=== PATIENT | female | born 1985 | race Caucasian/White ===

== ENCOUNTER 2023-02-27 17:42 | Emergency (ER) | payer SELFPAY ==
--- OUTSIDE RECORDS SUMMARY | 2023-02-27 17:53 | XMS REPORT | Continuity of Care Document ---
:[address] [facility] t Address [address] [place] [address] Care Team Providers Name Role Phone Pcp, Patient Does Not Have A Primary Care Physician [phone] ESPERANZA TRACY Attending Clinician Unavailable Esperanza Hobsb Attending Clinician [phone] JAVON JIMENEZ Attending Clinician Unavailable JAVON JIMENEZ Attending Clinician Unavailable Doctor Unassigned, [place] Attending Clinician Unavailable HÉCTOR YOON Attending Clinician Unavailable HÉCTOR YOON Attending Clinician Unavailable Pcp, Patient Does Not Have A Attending Clinician [phone] PETER Attending Clinician Unavailable Julio César Gómez MD Attending Clinician PETER Admitting Clinician Unavailable Payers Payer Name Policy Type Policy Number Effective Date Expiration Date S ource Problems Condition Condition Condition Status Onset Resolution Last Treating Co mments Source Name Details Category Date Date Treatment Clinician Date Well woman Well woman Disease Active U nivers exam exam 307 ity of 00:00: [place] 00 Medical Branch Retained Retained Disease Active 2013-04 Unive rs tampon, tampon, 05-04 ity of initial initial 00:00: [place] encounter encounter 00 [facility] BV BV Disease Active 2013-04 Univers (bacterial (bacterial 05-04 it y of vaginosis[place] [facility] Allergies, Adverse Reactions, Alerts Allergy Allergy Status Severity Reaction(s) Onset Inactive Treating Comm ents Source Name Type Date Date Clinician No Known DA Active U 2018-04 [facility] All[facility]ie 2-11 [place] 00:00: e 00 [facility] No Known DA Active U 2018-04 [facility] Allergie 2-11 Clear s 00:00: [place] 00 [facility] NO KNOWN Drug Active Univers ALLERGIE Class ity of S [facility] Social History Social Habit Start Date Stop Date Quantity Comments Source Gender identity Universit y of [facility] Sexual orientation Univer sity [facility] History of tobacco Cigarette Smoker University of use [facility] Exposure to 2022-06-23 2022-07-03 Not sure University of SARS-CoV-2 (event) 00:00:00 13:52:00 [facility] History of Social 2022-07-03 2022-07-03 Univers ity of function 00:00:00 00:00:00 [facility] Alcohol intake 2020-10-21 2020-10-21 Current University of 00:00:00 00:00:00 non-drinker of [facility] alcohol Branch (finding) Cigarettes smoked 2012-10-14 2012-10-14 Univers ity of current (pack per 00:00:00 00:00:00 ) - Reported Branch Cigarette 2012-10-14 2012-10-14 University of pack-years 00:00:00 00:00:00 [facility] Tobacco use and 2012-10-14 2012-10-14 Smokeless Universit y of exposure 00:00:00 00:00:00 tobacco non-user [facility] Sex Assigned At [birth year] Universit y of 00:00:00 00:00:00 [facility] Smoking Status Start Date Stop Date Source Smokes tobacco daily 2012-10-14 00:00:00 [facility] ity [facility] Medications Ordered Filled Start Stop Current Ordering Indication Dosage Frequency Signature Comments Components Source Medication Medication Date Date Medication? Clinician (SIG) Name Name metroNIDAZO Yes [id number] 500mg Take 1 Univers LE 500 mg 8-07 tablet by ity o f tablet 00:00: mouth in [place] [address] the Medical morning Branch and 1 tablet in the evening. metroNIDAZO 0 Yes [id number] 500mg Take 1 Univers LE 500 mg 8-07 tablet by ity o f tablet 00:00: mouth in [place] [address] the Medical morning Branch and 1 tablet in the evening. metroNIDAZO 0 Yes [id number] 500mg Take 1 Univers LE 500 mg 8-07 tablet by ity o f tablet 00:00: mouth in [place] 00 the Medical morning Branch and 1 tablet in the evening. metroNIDAZO 0 Yes [id number] 500mg Take 1 Univers LE 500 mg 8-07 tablet by ity o f tablet 00:00: mouth in [place] [address] the Medical morning Branch and 1 tablet in the evening. fluconazole 2022- Yes [id number] 150mg Take 1 Univers (DIFLUCAN) 12-03- tablet by ity of 150 mg 00:00[place] 04:59 [place] :00 now for 1 Medical dose. Branch fluconazole 2022- No [id number] 150mg Take 1 Univers (DIFLUCAN) 12-03- tablet by ity of 150 mg 00:00: 04:59 [place] 00 :00 now for 1 Medical dose. Branch fluconazole 2022- No [id number] 150mg Take 1 Univers (DIFLUCAN) 12-03- tablet by ity of 150 mg 00:00: 04:59 [place] 00 :00 now for 1 Medical dose. Branch fluconazole 2022- No [id number] 150mg Take 1 Univers (DIFLUCAN) 8-07 08-08 tablet by ity of 150 mg 00:00: 04:59 [place] tablet [place] :00 now for 1 Medical dose. Branch metroNIDAZO 2022-0 Yes [id number] 500mg Take 1 Univers LE 500 mg 3-10 tablet by ity o f tablet 00:00: mouth in [place] 00 the Medical morning [place] and 1 tablet in the evening. metroNIDAZO 2022-0 Yes [id number] 500mg Take 1 Univers LE 500 mg 3-10 tablet by ity o f tablet 00:00: mouth in [place] 00 the [facility] morning [place] [address] and 1 tablet in the evening. metroNIDAZO 2022-0 Yes [id number] 500mg Take 1 Univers LE 500 mg 3-10 tablet by ity o f tablet 00:00: mouth in [place] the [facility] morning [place] [address] and 1 tablet in the evening. metroNIDAZO 2022-0 Yes [id number] 500mg Take 1 Univers LE 500 mg 3-10 tablet by ity o f tablet 00:00: mouth in [place] 00 the [facility] morning [place] [address] and 1 tablet in the evening. metroNIDAZO 2022-0 Yes [id number] 500mg Take 1 Univers LE 500 mg 3-10 tablet by ity o f tablet 00:00: mouth in [place] the [facility] morning [place] [address] and 1 tablet in the evening. metroNIDAZO 2022-0 Yes [id number] 500mg Take 1 Univers LE 500 mg 3-10 tablet by ity o f tablet 00:00: mouth in [place] the [facility] morning [place] [address] and 1 tablet in the evening. metroNIDAZO 2022-0 Yes [id number] 500mg Take 1 Univers LE 500 mg 3-10 tablet by ity o f tablet 00:00: mouth in [place] 00 the [facility] morning [place] [address] and 1 tablet in the evening. metroNIDAZO 2022-0 Yes [id number] 500mg Take 1 Univers LE 500 mg 3-10 tablet by ity o f tablet 00:00: mouth in [place] [address] the [facility] morning [place] [address] and 1 tablet in the evening. metroNIDAZO 2022-0 Yes [id number] 500mg Take 1 Univers LE 500 mg 3-10 tablet by ity o f tablet 00:00: mouth in [place] [address] the Medical morning Branch and 1 tablet in the evening. metroNIDAZO 3-0 Yes [id number] 500mg Take 1 Univers LE 500 mg 3-10 tablet by ity o f tablet 00:00: mouth in [place] [address] the Medical morning Branch and 1 tablet in the evening. fluconazole 2022-0 3- No [id number] 150mg Take 1 Univers (DIFLUCAN) 3-10 -11 tablet by ity of 150 mg 00:00: 05:59 [place] :00 now for 1 Medical dose. Branch fluconazole 2022-0 3- No [id number] 150mg Take 1 Univers (DIFLUCAN) 3-10 -11 tablet by ity of 150 mg 00:00: 05:59 [place] tablet 00 :00 now for 1 Medical dose. Branch ampicillin 2022-0 3- No [id number] 500mg Take 1 Univers 500 mg 3-12 30-20 capsule by ity of capsule 00:00: 04:59 mouth 4 [place] 00 :00 ([facility]) Medical times Branch daily for 10 days. ampicillin 2022-0 3- No [id number] 500mg Take 1 Univers 500 mg 3-12 30-20 capsule by ity of capsule 00:00: 04:59 mouth 4 [place] 00 :00 (four) Medical times Branch daily for 10 days. ampicillin 2022-0 3- No [id number] 500mg Take 1 Univers 500 mg 3-12 30-20 capsule by ity of capsule 00:00: 04:59 mouth 4 [place] 00 :00 (four) Medical times Branch daily for 10 days. ampicillin 2022-0 3- No [id number] 500mg Take 1 Univers 500 mg 3-12 30-20 capsule by ity of capsule 00:00: 04:59 mouth 4 [place] 00 :00 (four) Medical times Branch daily for 10 days. ampicillin 3-0 3- No [id number] 500mg Take 1 Univers 500 mg 3-12 30-20 capsule by ity of capsule 00:00: 04:59 mouth 4 [place] 00 :00 (four) Medical times Branch daily for 10 days. ampicillin 3-0 3- No [id number] 500mg Take 1 Univers 500 mg 3-12 30-20 capsule by ity of capsule 00:00: 04:59 mouth 4 [place] 00 :00 (four) Medical times Branch daily for 10 days. ampicillin 2022-0 2022- No [id number] 500mg Take 1 Univers 500 mg 07-05-20 capsule by ity of capsule 00:00: 04:59 mouth 4 [place] 00 :00 (four) Medical times [place] daily for 10 days. ampicillin 3-0 2022- No [id number] 500mg Take 1 Univers 500 mg 3-20 capsule by ity of capsule 00:00: 04:59 mouth 4 [place] 00 :00 (four) Medical times [place] daily for 10 days. ampicillin 3-0 2022- No [id number] 500mg Take 1 Univers 500 mg 07-05-20 capsule by ity of capsule 00:00: 04:59 mouth 4 [place] 00 :00 (four) Medical times [place] daily for 10 days. medroxyPROG 2023-0 2023- No [id number] 150mg Univers ESTERone 3- 02-06 ity of (DEPO-PROVE 21:30: 21:29 [place] RA) syringe 00 :00 Medical 150 mg Branch medroxyPROG 3-0 2023- No [id number] 150mg Univers ESTERone 3- 02-06 ity of (DEPO-PROVE 21:30: 21:29 [place] RA) syringe 00 :00 Medical 150 mg Branch medroxyPROG 3-0 2023- No [id number] 150mg Univers ESTERone 3- 02-06 ity of (DEPO-PROVE 21:30: 21:29 [place] RA) syringe 00 :00 Medical 150 mg Branch medroxyPROG 3-0 2023- No [id number] 150mg Univers ESTERone 3- 02-06 ity of (DEPO-PROVE 21:30: 21:29 [place] RA) syringe 00 :00 Medical 150 mg Branch medroxyPROG 2023-0 4- No [id number] 150mg Univers ESTERone 3- 02-06 ity of (DEPO-PROVE 21:30: 21:29 [place] RA) syringe 00 :00 Medical 150 mg Branch medroxyPROG 2023-0 2023- No [id number] 150mg Univers ESTERone 3- 02-06 ity of (DEPO-PROVE 21:30: 21:29 [place] RA) syringe 00 :00 Medical 150 mg Branch medroxyPROG 2023-0 2024- No [id number] 150mg Univers ESTERone 3- 02-06 ity of (DEPO-PROVE 21:30: 21:29 [place] RA) syringe 00 :00 Medical 150 mg Branch medroxyPROG 2023-0 2023- No [id number] 150mg Univers ESTERone 3- 02-06 ity of (DEPO-PROVE 21:30: 21:29 [place] RA) syringe 00 :00 Medical 150 mg Branch medroxyPROG 2023-0 4- No [id number] 150mg Univers ESTERone 3- 02-06 ity of (DEPO-PROVE 21:30: 21:29 [place] RA) syringe 00 :00 Medical 150 mg Branch medroxyPROG 2023-0 2023- No [id number] 150mg Univers ESTERone 3- 02-06 ity of (DEPO-PROVE 21:30: 21:29 [place] RA) syringe 00 :00 Medical 150 mg Branch medroxyPROG 3-0 4- No [id number] 150mg Univers ESTERone 3- 02-06 ity of (DEPO-PROVE 21:30: 21:29 [place] RA) syringe 00 :00 Medical 150 mg Branch medroxyPROG 3-0 4- No [id number] 150mg Univers ESTERone 3- 02-06 ity of (DEPO-PROVE 21:30: 21:29 [place] RA) syringe 00 :00 Medical 150 mg Branch medroxyPROG 2023-0 4- No [id number] 150mg Univers ESTERone 3-07 02-06 ity of (DEPO-PROVE 21:30: 21:29 [place] RA) syringe 00 :00 Medical 150 mg Branch medroxyPROG 3-0 4- No [id number] 150mg Univers ESTERone 3-07 02-06 ity of (DEPO-PROVE 21:30: 21:29 [place] RA) syringe 00 :00 Medical 150 mg Branch medroxyPROG 2023-0 4- No [id number] 150mg Univers ESTERone 3-07 02-06 ity of (DEPO-PROVE 21:30: 21:29 [place] RA) syringe 00 :00 Medical 150 mg Branch medroxyPROG 2023-0 4- No [id number] 150mg Univers ESTERone 3-07 02-06 ity of (DEPO-PROVE 21:30: 21:29 [facility]) syringe 00 :00 Medical 150 mg Branch medroxyPROG 2023- No [id number] 150mg 150 mg, Univers ESTERone 07-03 Intramuscu ity of (DEPO-PROVE 21:30: 21:29 [facility]) syringe 00 :00 [id number], Med ical 150 mg 4 doses, Branch First dose on Sat07/03/22 at 1530, Last dose on Sat03/12/23 at 1530, Routine medroxyPROG 2023- No [id number] 150mg Univers ESTERone 07-03 ity of (DEPO-PROVE 21:30: 21:29 [facility]) syringe 00 :00 Medical 150 mg Branch medroxyPROG 2023- No [id number] 150mg 150 mg, Univers ESTERone 07-03 Intramuscu ity of (DEPO-PROVE 21:30: 21:29 [facility]) syringe 00 :00 [id number], Med ical 150 mg 4 doses, Branch First dose on Sat07/03/22 at 1530, Last dose on Sat03/12/23 at 1530, Routine medroxyPROG 2023- No [id number] 150mg Univers ESTERone 07-03 ity of (DEPO-PROVE 21:30: 21:29 [facility]) syringe 00 :00 Medical [address] [place] levoFLOXaci 2020- No 500mg 500 mg, U nivers n 6-26 06- Oral, ity of (LEVAQUIN) 04:30: 03:43 ONCE, 1 [place] tablet 500 00 :00 dose, Fri Medi ayah mg 10/21/20 at Branch 2330, AUDREY
Re ason for Anti-Infec tive: Documented Infection< br>Documen santa Infection Site: Urine
D uration of Therapy: Other (see Comments) levoFLOXaci Yes [id number] 500mg Take 1 Univers n 6-25 tablet by ity of (LEVAQUIN) 00:00: mouth [place] 500 mg 00 every 24 Medical tablet (twenty-fo [place] ur) hours. phenazopyri 2021-0 Yes [id number] 200mg Take 1 Univers dine 200 mg 6-25 tablet by ity of tablet 00:00: mouth 3 [place] (three) Medical times Branch daily. levoFLOXaci 2021-0 Yes [id number] 500mg Take 1 Univers n 6-25 tablet by ity of (LEVAQUIN) 00:00: mouth [place] 500 mg 00 every 24 Medical tablet (twenty-fo Branch ur) hours. phenazopyri 2021-0 Yes [id number] 200mg Take 1 Univers dine 200 mg 6-25 tablet by ity of tablet 00:00: mouth 3 [place] (three) Medical times Branch daily. levoFLOXaci 2021-0 Yes [id number] 500mg Take 1 Univers n 6-25 tablet by ity of (LEVAQUIN) 00:00: mouth [place] 500 mg 00 every 24 Medical tablet (twenty-fo Branch ur) hours. phenazopyri 2021-0 Yes [id number] 200mg Take 1 Univers dine 200 mg 6-25 tablet by ity of tablet 00:00: mouth 3 (three) Medical times Branch daily. levoFLOXaci 2021-0 Yes [id number] 500mg Take 1 Univers n 6-25 tablet by ity of (LEVAQUIN) 00:00: mouth [place] 500 mg 00 every 24 Medical tablet (twenty-fo Branch ur) hours. phenazopyri 2021-0 Yes [id number] 200mg Take 1 Univers dine 200 mg 6-25 tablet by ity of tablet 00:00: mouth 3 (three) Medical times Branch daily. levoFLOXaci 2021-0 Yes [id number] 500mg Take 1 Univers n 6-25 tablet by ity of (LEVAQUIN) 00:00: mouth [place] 500 mg 00 every 24 Medical tablet (twenty-fo Branch ur) hours. phenazopyri 2021-0 Yes [id number] 200mg Take 1 Univers dine 200 mg 6-25 tablet by ity of tablet 00:00: mouth 3 (three) Medical times Branch daily. phenazopyri 2021-0 Yes [id number] 200mg Take 1 Univers dine 200 mg 6-25 tablet by ity of tablet 00:00: mouth 3 [place] (three) Medical times Branch daily. phenazopyri 2021-0 Yes [id number] 200mg Take 1 Univers dine 200 mg 6-25 tablet by ity of tablet 00:00: mouth (three) Medical times Branch daily. phenazopyri 2021-0 Yes [id number] 200mg Take 1 Univers dine 200 mg 6-25 tablet by ity of tablet 00:00: mouth 3 (three) Medical times Branch daily. phenazopyri 2021-0 Yes [id number] 200mg Take 1 Univers dine 200 mg 6-25 tablet by ity of tablet 00:00: mouth (three) Medical times Branch daily. phenazopyri 2021-0 Yes [id number] 200mg Take 1 Univers dine 200 mg 6-25 tablet by ity of tablet 00:00: mouth (three) Medical times Branch daily. phenazopyri 2021-0 Yes [id number] 200mg Take 1 Univers dine 200 mg 6-25 tablet by ity of tablet 00:00: mouth ([facility]) Medical times Branch daily. phenazopyri 1-0 Yes [id number] 200mg Take 1 Univers dine 200 mg 6-25 tablet by ity of tablet 00:00: mouth (three) Medical times Branch daily. phenazopyri 1-0 Yes [id number] 200mg Take 1 Univers dine 200 mg 6-25 tablet by ity of tablet 00:00: mouth [place] ([facility]) Medical times Branch daily. levoFLOXaci 2020-0 Yes [id number] 500mg Take 1 Univers n 6-25 tablet by ity of (LEVAQUIN) 00:00: mouth [place] 500 mg 00 every 24 Medical tablet (twenty-fo Branch ur) hours. phenazopyri 2021-0 Yes [id number] 200mg Take 1 Univers dine 200 mg 6-25 tablet by ity of tablet 00:00: mouth (three) Medical times Branch daily. phenazopyri 2021-0 Yes [id number] 200mg Take 1 Univers dine 200 mg 6-25 tablet by ity of tablet 00:00: mouth 3 [place] (three) Medical times Branch daily. phenazopyri 2021-0 Yes [id number] 200mg Take 1 Univers dine 200 mg 6-25 tablet by ity of tablet 00:00: mouth 3 (three) Medical times Branch daily. phenazopyri 2021-0 Yes [id number] 200mg Take 1 Univers dine 200 mg 6-25 tablet by ity of tablet 00:00: mouth 3 [place] 00 (three) Medical times Branch daily. levoFLOXaci 2021-0 Yes [id number] 500mg Take 1 Univers n 6-25 tablet by ity of (LEVAQUIN) 00:00: mouth [place] 500 mg 00 every 24 Medical tablet (twenty-fo Branch ur) hours. phenazopyri 2021-0 Yes [id number] 200mg Take 1 Univers dine 200 mg 6-25 tablet by ity of tablet 00:00: mouth 3 [place] 00 (three) Medical times Branch daily. levoFLOXaci 2021-0 Yes [id number] 500mg Take 1 Univers n 6-25 tablet by ity of (LEVAQUIN) 00:00: mouth [place] 500 mg 00 every 24 Medical tablet (twenty-fo Branch ur) hours. phenazopyri 2021-0 Yes [id number] 200mg Take 1 Univers dine 200 mg 6-25 tablet by ity of tablet 00:00: mouth 3 ([facility]) Medical times Branch daily. levoFLOXaci 2021-0 Yes [id number] 500mg Take 1 Univers n 6-25 tablet by ity of (LEVAQUIN) 00:00: mouth [place] 500 mg 00 every 24 Medical tablet (twenty-fo Branch ur) hours. phenazopyri 2021-0 Yes [id number] 200mg Take 1 Univers dine 200 mg 6-25 tablet by ity of tablet 00:00: mouth 3 [place] ([facility]) Medical times Branch daily. levoFLOXaci 2021-0 Yes [id number] 500mg Take 1 Univers n 6-25 tablet by ity of (LEVAQUIN) 00:00: mouth [place] 500 mg 00 every 24 Medical tablet (twenty-fo Branch ur) hours. phenazopyri 2021-0 Yes [id number] 200mg Take 1 Univers dine 200 mg 6-25 tablet by ity of tablet 00:00: mouth 3 [place] (three) Medical times Branch daily. levoFLOXaci 2021-0 Yes [id number] 500mg Take 1 Univers n 6-25 tablet by ity of (LEVAQUIN) 00:00: mouth [place] 500 mg 00 every 24 Medical tablet (twenty-fo Branch ur) hours. phenazopyri 2021-0 Yes [id number] 200mg Take 1 Univers dine 200 mg 6-25 tablet by ity of tablet 00:00: mouth 3 [place] 00 (three) Medical times Branch daily. levoFLOXaci 2022- No [id number] 500mg Take 1 Univers n 10-21 03-10 tablet by ity of (LEVAQUIN) 00:00: 00:00 mouth [place] 500 mg 00 :00 every 24 Medical tablet (twenty-fo Branch ur) hours. levoFLOXaci 2022- No [id number] 500mg Take 1 Univers n 10-21 03-10 tablet by ity of (LEVAQUIN) 00:00: 00:00 mouth [place] 500 mg 00 :00 every 24 Medical tablet (twenty-fo Branch ur) hours. Vital Signs Vital Name Observation Time Observation Value Comments Source Systolic blood 2022-11-29 19:43:00 106 mm[Hg] Univer sity of [facility] Diastolic blood 2022-11-29 19:43:00 72 mm[Hg] [facility] Heart rate 2022-11-29 19:43:00 88 /min [facility] Body temperature 2022-11-29 19:43:00 35.94 Yolanda [facility] Respiratory rate 2022-11-29 19:43:00 18 /min [facility] Body height 2022-11-29 19:43:00 154.9 cm [facility] Body weight 2022-11-29 19:43:00 45.36 kg [facility] BMI 2022-11-29 19:43:00 18.89 kg/m2 [facility] Systolic blood 2022-07-03 19:53:00 113 mm[Hg] Univer sity [facility] Diastolic blood 2022-07-03 19:53:00 78 mm[Hg] [facility] Heart rate 2022-07-03 19:53:00 107 /min [facility] Body temperature 2022-07-03 19:53:00 36.83 [facility] 2022-07-03 19:53:00 17 /min Univ [facility] Body height 2022-07-03 19:53:00 154.9 cm [facility] Body weight 2022-07-03 19:53:00 45.995 kg Universi ty [facility] BMI 2022-07-03 19:53:00 19.16 kg/m2 Universi ty [facility] Systolic blood 2020-10-22 03:55:00 104 mm[Hg] Univer sity of pressure [facility] Diastolic blood 2020-10-22 03:55:00 81 mm[Hg] Unive rsity of [facility] Heart rate 2020-10-22 03:55:00 97 /[facility] Respiratory rate 2020-10-22 03:55:00 16 /min [facility] Oxygen saturation in 2020-10-22 03:55:00 100 /min [facility] Arterial blood by [facility] Pulse oximetry [place] Body temperature 2020-10-22 01:21:00 37.94 Yolanda [facility] Body height 2020-10-22 01:21:00 154.9 cm [facility] Body weight 2020-10-22 01:21:00 44.589 kg [facility] BMI 2020-10-22 01:21:00 18.57 kg/m2 [facility] Procedures Procedure Date / Time Performed Performing Clinician [facility] e ASSIGNMENT OF BENEFITS 2022-07-03 19:31:22 Doctor Unassigned, No [facility] Name [facility] POCT TEST 2022-07-03 00:00:00 Esperanza Tracy Uni [facility] POCT URINALYSIS W/O 2022-07-03 00:00:00 Esperanza Tracy Uni [facility] SPECIFIC GRAVITY [facility] URINALYSIS 2020-10-22 01:27:00 Julio César Gómez [facility] POCT TEST 2020-10-22 01:26:00 Julio César Gómez [facility] NOTICE OF PRIVACY 2020-10-22 01:04:45 Doctor Unassigned, No Univ [facility] CONSENT/REFUSAL FOR 2020-10-22 01:04:22 Doctor Unassigned, No [facility] DIAGNOSIS AND [facility] TREATMENT Encounters Start End Encounter Admission Attending Care Care Encounter Source Date/Time Date/Time Type Type Clinicians Facility Department ID 2019-05-10 [id number] 00:40:00 56 [facility] 2022-12-03 2022-12-03 [facility] [id number] Univers 00:00:00 00:00:00 Esperanza C INCOME TAX ADVISOR 350.1.13.10 ity of REGIONAL 4.2.7.2.686 [place] as MATERNAL [id number] [facility] & CHILD [address] [place] [address] 2022-11-29 2022-11-29 Office [facility] [id number] Univers 15:30:00 15:30:00 Visit Esperanza Buchanan INCOME TAX ADVISOR 350.1.13.10 ity of [facility] [id number] [place]are[place] as MATERNAL [id number] [facility] & CHILD [address] [place] [address] 2022-11-29 2022-11-29 Outpatient R ROSSANA, [facility] [id number] Univers 15:30:00 15:22:37 ESPERANZA chavez o [facility] 2022-11-28 2022-11-28 Outpatient R JAVON JIMENEZ [facility] [id number] Univers 12:30:00 12:30:00 JAVON JIMENEZ amena [facility] 2022-09-25 2022-09-25 Outpatient R ROSSANA [facility] [id number] Univers 15:00:00 15:00:00 ESPERANZA guillermoy o f [facility] 2022-07-10 2022-07-10 [facility] [id number] Univers 00:00:00 00:00:00 Esperanza Buchanan INCOME TAX ADVISOR 350.1.13.10 ity of [facility] [id number] Darell as MATERNAL [id number] [facility] & CHILD [address] [place] [address] 2022-07-06 2022-07-06 Telephone [facility] [id number] Univers 00:00:00 00:00:00 Esperanza C INCOME TAX ADVISOR 350.1.13.10 ity of [facility] [id number] Darell as MATERNAL [id number] [facility] & CHILD [address] [place] [address] 20[address] [facility] [id number] Univers 00:00:00 00:00:00 Esperanza C INCOME TAX ADVISOR 350.1.13.10 ity of REGIONAL [id number] Darell as MATERNAL [id number] [facility] & CHILD [address] [place] [address] 2022-07-03 2022-07-03 Outpatient R ROSSANA [facility] [id number] Univers 13:30:00 14:51:18 ESPERANZA ity o f [facility] 2022-07-03 2022-07-03 Office [facility] [id number] Univers 13:30:00 14:51:18 Visit Esperanza C INCOME TAX ADVISOR 350.1.13.10 ity of REGIONAL [id number] Darell as MATERNAL [id number] [facility] & [address] 2022-07-03 2022-07-03 Orders Doctor STEPHAN [id number] Univers 00:00:00 00:00:00 Only Unassigned, DEVANTE 350.1.13.10 ity of [place] [facility] 4.2.7.2.686 Darell as [id number] [address] 2022-07-02 2022-07-02 Outpatient R HÉCTOR YOON [facility] B [id number] Univers 14:15:00 14:15:00 HÉCTOR YOON ity [facility] 2022-07-02 2022-07-02 Telephone [facility] [id number] Univers 00:00:00 00:00:00 Patient INCOME TAX ADVISOR 350.1.13.10 it y of Does Not [place] A MATERNAL [phone] [facility] CHILD [address] [place] [address] 2022-06-26 2022-06-26 Patient Doctor [facility] [id number] Univers 00:00:00 00:00:00 Secure Msg Unassigned, JACKLYN 350.1.13.10 ity of [place] WOMEN'S 4.2.7.2.686 [facility] [phone] [facility] [address] 2021-11-20 2021-11-20 Outpatient AMBREEN[place] [id number] [place] 10:08:00 10:08:00 HANA 0725 [facility] 2020-10-21 2020-10-21 Emergency Yariri, [facility] [id number] Univers 20:27:00 23:50:00 Julio César Thomas Otto 350.1.13.10 ity of [place] 4.2.7.2.686 [facility] [phone] [facility] [address] 2020-10-21 2020-10-[address] [facility] ERT [id number] Univers 20:27:00 20:27:00 [facility] Results Test Description Test Time Test Comments Results Result Comments Source POCT URINALYSIS W/O SPECIFIC GRAVITY 2022-07-03 20:01:00 Test Item Value Reference Range Interpretation Comme nts POCT PH U (test code = 3254) 6 mg/dl 5-8 POCT U LEUK EST (test code = 3263) 2+ Negative - Negative POCT U NIT (test code = 3262) negative Negative - Negative POCT U PROT (test code = 3259) 1+ Negative - Negative POCT U GLU (test code = 3256) negative Negative - Negative POCT U KETONE (test code = 3258) negative Negative - Negative POCT U BLD (test code = 3257) 250 Negative - Negative [facility] [id number] 20:01:00 Test Item Value Reference Range Interpretation Comments POCT PREG (test code = 1605) Negative On board controls acceptable with C Yes Line (test code = 3574) POCT PREG LOT # (test code = 3575) POCT PREG TEST DATE (test code = 3576) [facility] URINALYSIS W/O SPECIFIC [id number] 20:01:00 Test Item Value Reference Range Interpretation Comments POCT PH U (test code = 3254) 6 mg/dl 5-8 POCT U LEUK EST (test code = 2+ Negative - Negative 3263) POCT U NIT (test code = 3262) negative Negative - Negative POCT U PROT (test code = 3259) 1+ Negative - Negative POCT U GLU (test code = 3256) negative Negative - Negative POCT U KETONE (test code = 3258) negative Negative - Negative POCT U BLD (test code = 3257) 250 Negative - Negative [facility] [id number] 20:01:00 Test Item Value Reference Range Interpretation Comments POCT PREG (test code = 1605) Negative On board controls acceptable with C Yes Line (test code = 3574) POCT PREG LOT # (test code = 3575) POCT PREG TEST DATE (test code = 3576) [facility] 01:59:22 Test Item Value Reference Range Interpretation Comments APPEARANCE (test code = Cloudy Clear A 8688216548) COLOR (test code = Ynes Yellow A 7633484802) PH (test code = 4.8-8.0 8092080541) SP GRAVITY (test code = 1.003-1.030 2738519071) GLU U QUAL (test code = Normal Normal 1386857867) BLOOD (test code = Negative Negative 8714504267) KETONES (test code = Negative Negative 1958619488) PROTEIN (test code = Negative Negative 2887-8) UROBILIN (test code = 4.0 mg/dL Normal A 2105781434) BILIRUBIN (test code = Negative Negative 2589883379) NITRITE (test code = Negative Negative 1472469405) LEUK MCKENZIE (test code = 250/uL Negative A 9604916121) RBC/HPF (test code = See_Comment H [Autom ated message] 9139087120) The system [employer] generated this result transmit santa reference range : 0 - 3 HPF. The refe rence range was not u sed to interpret th is result as normal/abnormal . WBC/HPF (test code = See_Comment H [Autom ated message] 3519560394) The system [employer] generated this result transmit santa reference range : 0 - 5 HPF. The refe rence range was not u sed to interpret th is result as normal/abnormal . BACTERIA (test code = Few Negative A 5556505243) MUCOUS (test code = Marked Negative LPF A 7081484418) AMORPHOUS (test code = Rare Rare HPF 9243438162) SQ EPITH (test code = HPF 9301619816) Lab Interpretation (test Abnormal code = 49842-6) [facility] [id number] 01:26:00 Test Item Value Reference Range Interpretation Comments POCT PREG (test code = 1605) Negative On board controls acceptable with Present C Line (test code = 3574) POCT PREG LOT # (test code = HCG [id number]) POCT PREG TEST DATE (test 04/28/2022 code = 3576) Lab Interpretation (test code = Normal 97243-1) [facility] [id number] 05:20:00 Test Item Value Reference Range Interpretation Comments SODIUM (test code = 142 mmol/L 136-145 N NA) POTASSIUM (test code 3.9 mmol/L 3.5-5.1 N = K) CHLORIDE (test code = 112.0 mmol/L 98-107 H CL) CARBON DIOXIDE (test 25.0 mmol/L 21-32 N code = CO2) ANION GAP (test code 8.9 10-20 L = GAP) GLUCOSE (test code = 92 mg/dL 74-106 N GLU) BLOOD UREA NITROGEN 3 mg/dL 7-18 L (test code = BUN) GLOMERULAR FILTRATION > 60 mL/min >=60 Estima santa GFR by RATE (test code = using Stephan fied MDRD GFR) formula.Chronic kidney disease is defined as eith er kidney damageor GFR <60 mL/min/1.73 m2 for >3 months. CREATININE (test code 0.30 mg/dL 0.55-1.02 L Note change in = CREAT) reference range due to change in reagent. BUN/CREATININE RATIO 8.7 10-20 L (test code = BUN/CREA) CALCIUM (test code = 7.9 mg/dL 8.5-10.1 L CA) CBC W/AUTO [id number] 05:12:00 Test Item Value Reference Range Interpretation Comments WHITE BLOOD CELL (test 8.3 K/mm3 4.5-12.5 N code = WBC) RED BLOOD CELL (test 3.40 mill/mm3 3.7-5.2 L code = RBC) HEMOGLOBIN (test code 9.1 gram/dL 11.5-15.5 L = HGB) HEMATOCRIT (test code 29.1 % 36.0-46.0 L = HCT) MEAN CELL VOLUME (test 85.6 fL 80-98 N code = MCV) MEAN CELL HGB (test 26.8 picogram 27.0-33.0 L code = MCH) MEAN CELL HGB 31.3 gram/dL 33.0-36.0 L CONCETRATION (test code = MCHC) RED CELL DISTRIBUTION 15.3 % 11.6-16.2 N WIDTH (test code = RDW) RED CELL DISTRIBUTION 48.3 fL 37.0-51.0 N WIDTH SD (test code = RDW-SD) PLATELET COUNT (test 300 K/mm3 150-450 RESULT VERIFIED BY code = PLT) REPEAT ANALYSIS MEAN PLATELET VOLUME 11.0 fL 6.7-11.0 N (test code = MPV) NEUTROPHIL % (test 61.6 % 39.0-69.0 N code = NT%) IMMATURE GRANULOCYTE % 0.4 % 0.0-5.0 N (test code = IG%) LYMPHOCYTE % (test 23.5 % 25.0-55.0 L code = LY%) MONOCYTE % (test code 13.6 % 0.0-10.0 H = MO%) EOSINOPHIL % (test 0.5 % 0.0-5.0 N code = EO%) BASOPHIL % (test code 0.4 % 0.0-1.0 N = BA%) NUCLEATED RBC % (test 0.0 % 0-0 N code = NRBC%) NEUTROPHIL # (test 5.11 K/mm3 1.8-7.7 N code = NT#) IMMATURE GRANULOCYTE # 0.03 x10 3/uL 0-0.03 N (test code = IG#) LYMPHOCYTE # (test 1.95 K/mm3 1.0-5.0 N code = LY#) MONOCYTE # (test code 1.13 K/mm3 0-0.8 H = MO#) EOSINOPHIL # (test 0.04 K/mm3 0.0-0.5 N code = EO#) BASOPHIL # (test code 0.03 K/mm3 0.0-0.2 N = BA#) NUCLEATED RBC # (test 0.00 K/mm3 0.0-0.1 N code = NRBC#) MANUAL DIFF REQUIRED NO (test code = MDIFF) BASIC METABOLIC [id number] 05:05:00 Test Item Value Reference Range Interpretation Comments SODIUM (test code = NA) 142 mmol/L 136-145 N POTASSIUM (test code = K) 3.9 mmol/L 3.5-5.1 N CHLORIDE (test code = CL) 112.0 mmol/L 98-107 H CARBON DIOXIDE (test code = CO2) mmol/L 21-32 ANION GAP (test code = GAP) 10-20 GLUCOSE (test code = GLU) mg/dL 74-106 BLOOD UREA NITROGEN (test code = mg/dL 7-18 BUN) GLOMERULAR FILTRATION RATE (test mL/min >=60 code = GFR) CREATININE (test code = CREAT) mg/dL 0.55-1.02 BUN/CREATININE RATIO (test code 10-20 = BUN/CREA) CALCIUM (test code = CA) mg/dL 8.5-10.1 BASIC METABOLIC [id number] 15:26:00 Test Item Value Reference Range Interpretation Comments SODIUM (test code = 139 mmol/L 136-145 N NA) POTASSIUM (test code 3.6 mmol/L 3.5-5.1 N = K) CHLORIDE (test code = 106.0 mmol/L 98-107 N CL) CARBON DIOXIDE (test 27.0 mmol/L 21-32 N code = CO2) ANION GAP (test code 9.6 10-20 L = GAP) GLUCOSE (test code = 130 mg/dL 74-106 H GLU) BLOOD UREA NITROGEN 4 mg/dL 7-18 L (test code = BUN) GLOMERULAR FILTRATION > 60 mL/min >=60 Estima santa GFR by RATE (test code = using Stephan fied MDRD GFR) formula.Chronic kidney disease is defined as eith er kidney damageor GFR <60 mL/min/1.73 m2 for >3 months. CREATININE (test code 0.50 mg/dL 0.55-1.02 L Note change in = CREAT) reference range due to change in reagent. BUN/CREATININE RATIO 8.1 10-20 L (test code = BUN/CREA) CALCIUM (test code = 7.9 mg/dL 8.5-10.1 L CA) GORGE [id number] NOTIFIED@---MOBILAB COMMENT---THYROID PROFILE [id number] 15:26:00 Test Item Value Reference Range Interpretation Comments T3 UPTAKE (test code = 36.0 % 30.0-40.0 N T3UP) T4 (THYROXINE) (test 6.8 ug/dL 4.5-13.9 N code = T4) T7 (FREE THYROXINE 2.44 FTI 1.3-5.1 N INDEX) (test code = T7) THYROID STIMULATING 1.420 uIU/mL 0.36-3.74 N TSH REFE RENCE HORMONE (test code = RANGES: EUTHYROID: TSH) 0.35 - 4.3 mIU/ mL HYPO : > 5.5 mI U/mL HYPER : < 0.35 mIU/mL GORGE [id number] NOTIFIED@---MOBILAB COMMENT---BASIC METABOLIC [id number] 15:12:00 Test Item Value Reference Range Interpretation Comments SODIUM (test code = NA) 139 mmol/L 136-145 N POTASSIUM (test code = K) 3.6 mmol/L 3.5-5.1 N CHLORIDE (test code = CL) 106.0 mmol/L 98-107 N CARBON DIOXIDE (test code = CO2) mmol/L 21-32 ANION GAP (test code = GAP) 10-20 GLUCOSE (test code = GLU) mg/dL 74-106 BLOOD UREA NITROGEN (test code = mg/dL 7-18 BUN) GLOMERULAR FILTRATION RATE (test mL/min >=60 code = GFR) CREATININE (test code = CREAT) mg/dL 0.55-1.02 BUN/CREATININE RATIO (test code 10-20 = BUN/CREA) CALCIUM (test code = CA) mg/dL 8.5-10.1 GORGE [id number] NOTIFIED@---MOBILAB COMMENT---THYROID PROFILE [id number] 15:12:00 Test Item Value Reference Range Interpretation Comments T3 UPTAKE (test code = T3UP) % 30.0-40.0 T4 (THYROXINE) (test code = T4) ug/dL 4.5-13.9 T7 (FREE THYROXINE INDEX) (test code FTI 1.3-5.1 = T7) THYROID STIMULATING HORMONE (test uIU/mL 0.36-3.74 code = TSH) GORGE [id number] NOTIFIED@---MOBILAB COMMENT---CBC W/AUTO [id number] 15:08:00 Test Item Value Reference Range Interpretation Comments WHITE BLOOD CELL (test 13.0 K/mm3 4.5-12.5 H code = WBC) RED BLOOD CELL (test 3.09 mill/mm3 3.7-5.2 L code = RBC) HEMOGLOBIN (test code 8.4 gram/dL 11.5-15.5 L RESULT VERIFIED BY = HGB) REPEAT ANALYSIS HEMATOCRIT (test code 26.8 % 36.0-46.0 L = HCT) MEAN CELL VOLUME (test 86.7 fL 80-98 N code = MCV) MEAN CELL HGB (test 27.2 picogram 27.0-33.0 N code = MCH) MEAN CELL HGB 31.3 gram/dL 33.0-36.0 L CONCETRATION (test code = MCHC) RED CELL DISTRIBUTION 15.3 % 11.6-16.2 N WIDTH (test code = RDW) RED CELL DISTRIBUTION 48.6 fL 37.0-51.0 N WIDTH SD (test code = RDW-SD) PLATELET COUNT (test 250 K/mm3 150-450 code = PLT) MEAN PLATELET VOLUME 10.1 fL 6.7-11.0 N (test code = MPV) NEUTROPHIL % (test 74.0 % 39.0-69.0 H code = NT%) IMMATURE GRANULOCYTE % 0.6 % 0.0-5.0 N (test code = IG%) LYMPHOCYTE % (test 13.3 % 25.0-55.0 L code = LY%) MONOCYTE % (test code 11.6 % 0.0-10.0 H = MO%) EOSINOPHIL % (test 0.2 % 0.0-5.0 N code = EO%) BASOPHIL % (test code 0.3 % 0.0-1.0 N = BA%) NUCLEATED RBC % (test 0.0 % 0-0 N code = NRBC%) NEUTROPHIL # (test 9.59 K/mm3 1.8-7.7 H code = NT#) IMMATURE GRANULOCYTE # 0.08 x10 3/uL 0-0.03 H (test code = IG#) LYMPHOCYTE # (test 1.73 K/mm3 1.0-5.0 N code = LY#) MONOCYTE # (test code 1.51 K/mm3 0-0.8 H = MO#) EOSINOPHIL # (test 0.03 K/mm3 0.0-0.5 N code = EO#) BASOPHIL # (test code 0.04 K/mm3 0.0-0.2 N = BA#) NUCLEATED RBC # (test 0.00 K/mm3 0.0-0.1 N code = NRBC#) MANUAL DIFF REQUIRED NO (test code = MDIFF) RN [id number] NOTIFIED@---MOBILAB COMMENT---UR HCG [id number] 05:38:00 Test Item Value Reference Range Interpretation Comments UR HCG QUAL (test NEGATIVE This HCGQL test is NOT code = HCGQLU) applicable fo r MALE patients.Check with nurse about probable order error.If Tumor Marker Test needed, nu rse should order test "HCG TU"(Test #[id number])---- - - XR CHEST 1 [id number] 15:16:00 FAX: Paulo Chew [phone] [place]: NE St: REG Name: MARISOL [facility] FSED : 1985 Age/S: 33/F [address] [facility] N Unit #: [id number] [facility] [address] Phys: Paulo Chew MD [place] [address] Acct: [id number] Dis Date: Status: REG ER PHONE #: Exam Date: 04/08/2019 1336 FAX #: Reason: CODE SEPSIS EXAMS: CPT CODE: [id number] XR CHEST 1 V 51881 REASON FOR EXAM: CODE SEPSIS EXAM ORDER DATE: 04/08/2019 1:28 PM Ordering: Paulo Chew MD Attending:Paulo Chew MD Location[facility] PROCEDURE: - XR CHEST 1 V COMPARISON: FINDINGS: Portable AP frontal view of the chest obtained at 2:32 PM shows clear lungs without evidence of consolidation. There is no evidence of effusion. The heart size is within normal limits. Pulmonary vasculatures are unremarkable. IMPRESSION: No active disease. at 1516 Reported and signed by: Jerrell Riggs M.D. CC: Paulo Chew MD Technologist: Anuj Poole Date/Time/By: 04/08/2019 (1485) : By: EleanorL Orig Print D/T: S: 04/08/2019 (0289) PAGE 1 Signed ReportBASIC METABOLIC [id number] 14:16:00 Test Item Value Reference Range Interpretation Comments SODIUM (test code = 133 mmol/L 128-145 N NA) POTASSIUM (test code = 3.4 mmol/L 3.5-5.1 L K) CHLORIDE (test code = 94.0 mmol/L 98-107 L CL) CARBON DIOXIDE (test 24.1 mmol/L 22-29 N code = CO2) ANION GAP (test code = 18 mmol/L 10-20 N GAP) GLUCOSE (test code = 108 mg/dL 70-110 N GLU) BLOOD UREA NITROGEN 7 mg/dL 7-22 N (test code = BUN) GLOMERULAR FILTRATION > 60 mL/min >=60 Estima santa GFR by RATE (test code = GFR) using Modified MDRD formula.Chronic kidney disease is defined as [facility] kidney damageor GFR <60 mL/min/1.73 m2 for >3 months. CREATININE (test code 0.73 mg/dL 0.55-1.3 N = CREAT) BUN/CREATININE RATIO 9.6 10-20 L (test code = BUN/CREA) CALCIUM (test code = 9.1 mg/dL 8.0-10.5 N CA) HEPATIC FUNCTION [id number] 14:16:00 Test Item Value Reference Range Interpretation Comments TOTAL PROTEIN (test code = PROT) 7.7 gram/dL 6.1-7.8 N ALBUMIN (test code = ALB) 3.4 g/dL 3.3-4.4 N GLOBULIN (test code = GLOB) 4.3 G/DL 1-10 N ALBUMIN/GLOBULIN RATIO (test code 0.8 0.75-1.50 N = A/G) BILIRUBIN TOTAL (test code = 0.60 mg/dL 0.2-1.2 N BILT) BILIRUBIN DIRECT (test code = 0.20 mg/dL 0.0-0.30 N BILD) SGOT/AST (test code = AST) 10 U/L 10-39 N SGPT/ALT (test code = ALT) 14 U/L 10-69 N ALKALINE PHOSPHATASE TOTAL (test 78 U/L 50-139 N code = ALKP) [id number] 14:16:00 Test Item Value Reference Range Interpretation Comments TROPONIN-I (test code = TROPI) <0.015 ng/mL 0.00-0.056 N LACTIC [id number] 14:11:00 Test Item Value Reference Range Interpretation Comments LACTIC ACID (test code = LACT) 1.4 MMOL/L 0.4-1.9 N [id number] 14:02:00 Test Item Value Reference Range Interpretation Comments TROPONIN-I (test code = TROPI) ng/mL 0-0.045 URINALYSIS [id number] 14:02:00 Test Item Value Reference Range Interpretation Comments UA COLOR (test code = YELLOW YELLOW COLU) UA APPEARANCE (test code HAZY CLEAR A = APPU) UA GLUCOSE DIPSTICK (test NEGATIVE mg/dL NEGATIVE code = DGLUU) UA BILIRUBIN DIPSTICK NEGATIVE NEGATIVE (test code = BILU) UA KETONE DIPSTICK (test 1+ mg/dL NEGATIVE code = KETU) UA SPECIFIC GRAVITY (test 1.020 1.001-1.035 code = SGU) UA BLOOD DIPSTICK (test 3+ (Large) NEGATIVE A code = KATHRYN) UA PH DIPSTICK (test code 6.0 5.0-8.0 = ASHLEE) UA PROTEIN DIPSTICK (test 100 (2+) mg/dL Neg-15 code = PROU) UA UROBILINIOGEN DIPSTICK 1 mg/dL (1+) mg/dL 0.0-0.2 (test code = URO) UA NITRITE DIPSTICK (test POSITIVE NEGATIVE code = ANTHONY) UA LEUKOCYTE ESTERASE 1+ uL NEGATIVE A DIPSTICK (test code = LEUU) UA MICROSCOPIC NEEDED? YES (test code = UAMICRO) UA WBC (test code = WBCU) >100 per HPF 0-5 A UA RBC (test code = RBCU) 5-10 per HPF 0-5 A UA EPITHELIAL CELLS (test Few (2-5/hpf) per Few code = EPIU) HPF UA BACTERIA (test code = LOADED per HPF NONE A BACU) Urine Source? Clean CatchBASIC METABOLIC [id number] 14:02:00 Test Item Value Reference Range Interpretation Comments SODIUM (test code = 133 mmol/L 128-145 N NA) POTASSIUM (test code = 3.4 mmol/L 3.5-5.1 L K) CHLORIDE (test code = 94.0 mmol/L 98-107 L CL) CARBON DIOXIDE (test 24.1 mmol/L 22-29 N code = CO2) ANION GAP (test code = 18 mmol/L 10-20 N GAP) GLUCOSE (test code = 108 mg/dL 70-110 N GLU) BLOOD UREA NITROGEN 7 mg/dL 7-22 N (test code = BUN) GLOMERULAR FILTRATION > 60 mL/min >=60 Estima santa GFR by RATE (test code = GFR) using Modified MDRD formula.Chronic kidney disease is defined as [facility] er kidney damageor GFR <60 mL/min/1.73 m2 for >3 months. CREATININE (test code 0.73 mg/dL 0.55-1.3 N = CREAT) BUN/CREATININE RATIO 9.6 10-20 L (test code = BUN/CREA) CALCIUM (test code = 9.1 mg/dL 8.0-10.5 N CA) HEPATIC FUNCTION [id number] 14:02:00 Test Item Value Reference Range Interpretation Comments TOTAL PROTEIN (test code = PROT) gram/dL 6.4-8.2 ALBUMIN (test code = ALB) g/dL 3.4-5.0 GLOBULIN (test code = GLOB) G/DL 1-10 ALBUMIN/GLOBULIN RATIO (test code = 0.75-1.50 A/G) BILIRUBIN TOTAL (test code = BILT) mg/dL 0.0-1.0 BILIRUBIN DIRECT (test code = BILD) mg/dL 0.0-0.20 SGOT/AST (test code = AST) IUnit/L 15-37 SGPT/ALT (test code = ALT) IUnit/L 12-78 ALKALINE PHOSPHATASE TOTAL (test IUnit/L 45-117 code = ALKP) URINALYSIS [id number] 13:58:00 Test Item Value Reference Range Interpretation Comments UA COLOR (test code = YELLOW YELLOW COLU) UA APPEARANCE (test code = HAZY CLEAR A APPU) UA GLUCOSE DIPSTICK (test NEGATIVE mg/dL NEGATIVE code = DGLUU) UA BILIRUBIN DIPSTICK NEGATIVE NEGATIVE (test code = BILU) UA KETONE DIPSTICK (test 1+ mg/dL NEGATIVE code = KETU) UA SPECIFIC GRAVITY (test 1.020 1.001-1.035 code = SGU) UA BLOOD DIPSTICK (test 3+ (Large) NEGATIVE A code = KATHRYN) UA PH DIPSTICK (test code 6.0 5.0-8.0 = ASHLEE) UA PROTEIN DIPSTICK (test 100 (2+) mg/dL Neg-15 code = PROU) UA UROBILINIOGEN DIPSTICK 1 mg/dL (1+) mg/dL 0.0-0.2 (test code = URO) UA NITRITE DIPSTICK (test POSITIVE NEGATIVE code = ANTHONY) UA LEUKOCYTE ESTERASE 1+ uL NEGATIVE A DIPSTICK (test code = LEUU) UA MICROSCOPIC NEEDED? (test code = UAMICRO) UA WBC (test code = WBCU) per HPF 0-5 UA RBC (test code = RBCU) per HPF 0-5 UA EPITHELIAL CELLS (test per HPF Few code = EPIU) UA BACTERIA (test code = per HPF NONE BACU) Urine Source? Clean CatchCBC W/AUTO [id number] 13:52:00 Test Item Value Reference Range Interpretation Comments WHITE BLOOD CELL (test code = 15.5 K/mm3 4.5-12.5 H WBC) RED BLOOD CELL (test code = 4.31 mill/mm3 3.7-5.2 N RBC) HEMOGLOBIN (test code = HGB) 11.7 gram/dL 11.5-15.5 N HEMATOCRIT (test code = HCT) 36.3 % 36.0-46.0 N MEAN CELL VOLUME (test code = 84.2 fL 80-98 N MCV) MEAN CELL HGB (test code = MCH) 27.1 picogram 27.0-33.0 N MEAN CELL HGB CONCETRATION 32.2 gram/dL 33.0-36.0 L (test code = MCHC) RED CELL DISTRIBUTION WIDTH 14.9 % 11.6-16.2 N (test code = RDW) RED CELL DISTRIBUTION WIDTH SD 46.5 fL 37.0-51.0 N (test code = RDW-SD) PLATELET COUNT (test code = 303 K/mm3 150-450 N PLT) MEAN PLATELET VOLUME (test code 10.1 fL 6.7-11.0 N = MPV) NEUTROPHIL % (test code = NT%) 75.5 % 39.0-69.0 H LYMPHOCYTE % (test code = LY%) 8.9 % 25.0-55.0 L MONOCYTE % (test code = MO%) 15.0 % 0.0-10.0 H EOSINOPHIL % (test code = EO%) 0.0 % 0.0-5.0 N BASOPHIL % (test code = BA%) 0.3 % 0.0-1.0 N NEUTROPHIL # (test code = NT#) 11.68 K/mm3 1.8-7.7 H LYMPHOCYTE # (test code = LY#) 1.38 K/mm3 1.0-5.0 N MONOCYTE # (test code = MO#) 2.32 K/mm3 0-0.8 H EOSINOPHIL # (test code = EO#) 0.00 K/mm3 0.0-0.5 N BASOPHIL # (test code = BA#) 0.04 K/mm3 0.0-0.2 N MANUAL DIFF REQUIRED (test code NO = MDIFF)
[2023-02-27 18:30] LABS: Specific Gravity 1.022 (1.005-1.030); Urine Bacteria <20 /HPF (<20); Urine Bilirubin NEGATIVE (Negative); Urine Blood Negative (Negative); Urine Clarity Turbid (Clear); Urine Color Light-Yellow (Yellow); Urine Glucose NEGATIVE (Negative); Urine Mucus 1+ /HPF (None Seen); Urine Protein NEGATIVE (Negative); Urine Urobilinogen Normal (Normal)
[2023-02-27 18:44] LABS: Specific Gravity 1.022 (1.005-1.030)
--- NOTE | 2023-02-27 20:02 | RAD REPORT ---
EXAM DESCRIPTION: US - Transvaginal Study Probe - 02/27/2023 7:33 pm CLINICAL HISTORY: ABD PAIN COMPARISON: No comparisons TECHNIQUE: Sonographic grayscale and color flow images of the pelvis were obtained through transva ginal approach. FINDINGS: The uterus is normal in size, shape and echotexture, apart from some myometrial heterogene ity, and an echogenic mural posterior wall 9 millimeter ovoid lesion which may represent a small fibr oid. The uterus measures 8 cm in length. The endometrial stripe measures 1 mm, normal. Both ovaries are normal in size, shape and echotexture. The right ovary measures 2.2 x 2.7 x 2.4 cm. The left ovary measures 2.7 x 2.3 x 1.9 cm. 1.8 cm left ovarian thinly septated cyst or dominant fo llicle, benign in appearance. No other suspicious ovarian or parovarian lesions. No adnexal masses. Normal Doppler blood flow was demonstrated to both ovaries. No significant pelvic ascites. IMPRESSION: Some myometrial heterogeneity and suspected 9 millimeter echogenic posterior wall fibroi d. No endometrial or adnexal abnormalities.
--- NOTE | 2023-02-27 20:07 | ER ---
Nurse's Notes [facility] Name: Eulalia Cm Age: 37 yrs Sex: Female : 1985 Arrival Date: 02/27/2023 Time: 17:42 Bed 12 Private MD: Diagnosis: Other ovarian cysts Presentation: 02/27 17:55 Chief complaint: Patient states: she has been having painful urination for a few days ap3 along with painful urination. patient rates her pain to be an 8/10 on the pain scale at this time. Coronavirus screen: At this time, the client does not indicate any symptoms associated with coronavirus-19. Ebola Screen: No symptoms or risks identified at this time. Initial Sepsis Screen: Does the patient meet any 2 criteria? No. Patient's initial sepsis screen is negative. Does the patient have a suspected source of infection? Yes: Dysuria/Frequency/Urgency/UTI. Risk Assessment: Do you want to hurt yourself or someone else? Patient reports no desire to harm self or others. Onset of symptoms is unknown. 17:55 Method Of Arrival: Ambulatory ap3 17:55 Acuity: LAURIE 3 ap3 Triage Assessment: 17:56 General: Appears in no apparent distress. Behavior is calm, cooperative, appropriate ap3 for age. Pain: Complains of pain in suprapubic area and left lower quadrant Pain currently is 8 out of 10 on a pain scale. Neuro: Level of Consciousness is awake, alert, obeys commands, Oriented to person, place, time, situation. Cardiovascular: Patient's skin is warm and dry. Respiratory: Airway is patent Respiratory effort is even, unlabored, Respiratory pattern is regular, symmetrical. : Reports pain in left flank(s), with urination. REPRODUCER: 17:57 LMP N/A - Irregular menses, Not ap3 Historical: - Allergies: 17:56 No Known Allergies; ap3 - Home Meds: 17:56 None [Active]; ap3 - PMHx: 17:56 None; ap3 - Immunization history:: Adult Immunizations up to date. - Social history:: Smoking status: Patient reports the use of cigarette tobacco products, smokes one pack cigarettes per day. Screenin:57 [facility] ED Fall Risk Assessment (Adult) History of falling in the last 3 months, ap3 including since admission No falls in past 3 months (0 pts). Abuse screen: Denies threats or abuse. Nutritional screening: No deficits noted. Tuberculosis screening: No symptoms or risk factors identified. Vital Signs: 17:55 BP 106 / 68; Pulse 106; Resp 18; Temp 98.4; Pulse Ox 100% ; Weight 45.36 kg; Pain 8/10; ap3 17:55 Pain Scale: Adult ap3 ED Course: 17:45 Patient arrived in ED. mg5 17:55 Kely Vásquez FNP-C [facility]. kb 17:55 Jim Salazar MD is Attending Physician. kb 17:56 Triage completed. ap3 17:57 Arm band placed on right wrist. ap3 17:57 Patient has correct armband on for positive identification. Bed in low position. Call ap3 light in reach. Adult w/ patient. Pulse ox on. NIBP on. 18:05 Milly Pandey, RN is Primary Nurse. ap3 18:05 Test, Urine Sent. ap3 18:05 Urinalysis w/ reflexes Sent. ap3 19:35 US Transvaginal Study (Probe) In Process Unspecified. EDMS 20:15 Provided Education on: discharge instructions. ap3 20:15 No provider procedures requiring assistance completed. Patient did not have IV access ap3 during this emergency room visit. Administered Medications: No medications were administered Medication: 20:15 VIS not applicable for this client. ap3 Outcome: 20:07 Discharge ordered by . kb 20:15 Discharged to home ambulatory, ap3 20:15 Condition: good 20:15 Discharge instructions given to patient, Instructed on discharge instructions, follow up and referral plans. Demonstrated understanding of instructions, follow-up care, 20:16 Patient left the ED. ap3 Signatures: Dispatcher [employer] EDAR Kely Vásquez FNP-C FNP-Ckb Prokisch, Amanda, RN RN ap3 Jocy Glass mg5
--- NOTE | 2023-02-27 20:07 | EDPHYS ---
Physician Documentation [facility] Name: Eulalia Cm Age: 37 yrs Sex: Female : 1985 Arrival Date: 02/27/2023 Time: 17:42 Bed 12 Private MD: ED Physician Jim Salazar HPI: 02/27 18:26 This 37 yrs old Female presents to ER via Ambulatory with complaints of Pain With kb Urination - suprapubic pain, left lower quadrant pain. 18:26 The patient presents with suprapubic pain, left pelvic pain that is worse with kb urination. 18:29 Onset: The symptoms/episode began/occurred 3 day(s) ago. kb 18:29 Modifying factors: The symptoms are alleviated by nothing, the symptoms are aggravated kb by pressure, urinating. Associated signs and symptoms: Pertinent positives: dysuria, Pertinent negatives: fever, vaginal discharge. Severity of symptoms: At their worst the symptoms were moderate, in the emergency department the symptoms are unchanged. The patient has not experienced similar symptoms in the past. The patient has not recently seen a physician. 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 - Social history:: Smoking status: Patient reports the use of cigarette tobacco products, smokes one pack cigarettes per day. ROS: 18:25 Constitutional: Negative for fever, chills, and weight loss, kb 18:25 : Positive for pelvic pain, suprapubic and left pelvic pain , 18:25 All other systems are negative, Exam: 18:26 Constitutional: This is a well developed, well nourished patient who is awake, alert, kb and in no acute distress. Head/Face: Normocephalic, atraumatic. ENT: Moist Mucous membranes Cardiovascular: Regular rate Respiratory: Respirations even and unlabored. No increased work of breathing. Talking in full sentences Skin: Warm, dry with normal turgor. Normal color. MS/ Extremity: Pulses equal, no cyanosis. Neurovascular intact. Full, normal range of motion. Neuro: Awake and alert, GCS 15, oriented to person, place, time, and situation. Moves all extremities. Normal gait. 18:26 Abdomen/GI: Inspection: abdomen appears normal, Bowel sounds: normal, Palpation: soft, in all quadrants, mild abdominal tenderness, in the suprapubic area, Vital Signs: 17:55 BP 106 / 68; Pulse 106; Resp 18; Temp 98.4; Pulse Ox 100% ; Weight 45.36 kg; Pain 8/10; ap3 17:55 Pain Scale: Adult ap3 MDM: 17:56 Patient medically screened. kb 18:30 Differential diagnosis: kidney stone, nonspecific abdominal pain, ovarian cyst, urinary kb tract infection. Data reviewed: vital signs, nurses notes. 02/27 17:56 Order name: Test, Urine; Complete Time: 18:50 kb 02/27 17:56 Order name: Urinalysis w/ reflexes; Complete Time: 18:30 kb 02/27 18:31 Order name: US Transvaginal Study (Probe); Complete Time: 20:06 kb Administered Medications: No medications were administered Disposition Summary: 02/27/23 20:07 Discharge Ordered Notes: Location: Home kb Condition: Stable kb Diagnosis - Other ovarian cysts kb Followup: kb - With: Emergency Department - When: As needed - Reason: Worsening of condition Followup: kb - With: Private Physician - When: 2 - 3 days - Reason: Recheck today's complaints, Continuance of care, Re-evaluation by your physician Discharge Instructions: - Discharge Summary Sheet kb - Ovarian Cyst, [id number] kb Forms: - Medication Reconciliation Form kb - Thank You Letter kb - Antibiotic Education kb - Prescription Opioid Use kb - Patient Portal Instructions kb - Leadership Thank You Letter kb Addendum: 03/04/2023 10:08 I was immediately available for consultation during this patient's visit. I did not e c2 personally see the patient or guide the patient's care.. Signatures: Dispatcher [employer] Kely Barajas FNP-C FNP-Ckb Prokisch, Amanda RN RN ap3 Jim Salazar MD MD ec2
[2023-02-27 20:28] VITALS: BP 106/68; TEMP 98.4; O2SAT 100
== END 2023-02-27 20:16 | disposition home or self-care (01) ==
LOC: ER 17:42
DX: N83.299 Other ovarian cyst, unspecified side (principal)
CPT/HCPCS: 76830; 81001; 81025; 99283

== ENCOUNTER → 2023-06-01 | Emergency (ER) | payer OTHER, SELFPAY ==
[~2023-06-01] MED LIST: KETOROLAC 30 MG/ML INJ ONE; NA CHLORIDE 0.9% 1,000 ML ONE
--- OUTSIDE RECORDS SUMMARY | 2023-06-01 20:29 | XMS REPORT | Continuity of Care Document ---
Author Name Unknown Address [address] [facility] [address] [place] [address] [facility] thconnect Address [address] [facility] [address] [place] [address] Care Team Providers Care Executive Cyber Leader Name Role Phone Javon Jones Primary Care Physician [phone] ESPERANZA TRACY Attending Clinician Unavail able Esperanza Hobbs Attending Clinician + JAVON JIMENEZ Attending Clinician UnavailJAVON Grace Attending Clinician UnavailMICHAEL Richards Attending Clinician Unavailable Michael Bailey MD Attending Clinician Doctor Unassigned, Leyner Attending Clinician U HÉCTOR Pearce Attending Clinician HÉCTOR Dos Santos Attending Clinician Maricruz salgado Pcp, Patient Does Not Have A Attending Clinician PETER Attending Clinician Unavailable Julio César Gómez MD Attending Clinician PETER Admitting Clinician Unavailable Payers Payer Name Policy Type Policy Number Effective Date Expirati on Date Source [facility] [id number] 2022 00:00:00 Problems Condition Name Condition Details Condition Category Status Onset Date Resolution Date Last Treatment Date Treating Clinician Comments Source Ovarian cyst Ovarian cyst Disease Active 2022-04 00:00: 00 [facility] Well woman exam Well woman exam Disease Active 07-03 00:00: 00 [facility] Retained tampon, initial encounter Retained tampon, initial encounter Disease Active 2013-04 00:00: 00 [facility] BV (bacterial vaginosis) BV (bacterial vaginosis) Disease Active 2013-04 00:00: 00 [facility] Allergies, Adverse Reactions, Alerts Allergy Name Allergy Type Status Severity Reaction(s) Onset Date Inactive Date Treating Clinician Comments Source No Known Allergie s DA Active U 2018-04 00:00: 00 [facility] No Known Allergie s DA Active U 2018-04 00:00: 00 [facility] NO KNOWN ALLERGIE S Drug Class Active [facility] Social History Social Habit Start Date Stop Date Quantity Comments Source Gender identity [facility] of tobacco use Cigarette Smoker [facility] Alcohol intake 2023-03-03 00:00:00 2023-03-03 00:00:00 Current non-drinker of alcohol (finding) [facility] History of Social function 2023-03-03 00:00:00 2023-03-03 00:00:00 [facility] Exposure to SARS-CoV-2 (event) 2022-06-23 00:00:00 2022-07-03 13:52:00 Not sure [facility] Cigarettes smoked current (pack per day) - Reported 2012-10-14 00:00:00 2012-10-14 00:00:00 [facility] Cigarette pack-years 2012-10-14 00:00:00 2012-10-14 00:00:00 [facility] Tobacco use and exposure 2012-10-14 00:00:00 2012-10-14 00:00:00 Smokeless tobacco non-user [facility] Sex Assigned At 1985 00:00:00 1985 00:00:00 [facility] Smoking Status Start Date Stop Date Source Smokes tobacco daily 2012-10-14 00:00:00 [facility] Medications Ordered Medication Name Filled Medication Name Start Date Stop Date Current Medication? Ordering Clinician Indication Dosage Frequency Signature (SIG) Comments Components Source acetaminoph en (TYLENOL) tablet 650 mg 2022-04 21:30: 00 03-03 21:35 :00 No 650mg 650 mg, Oral, ONCE NOW, 1 dose, On 03/03/23 at 1530, AUDREY [facility] dicyclomine (BENTYL) injection 20 mg 2022-04 21:30: 00 03-03 21:37 :00 No 20mg 20 mg, Intramuscu lar, ONCE NOW, 1 dose, On 03/03/23 at 1530, Routine [facility] ketorolac (TORADOL) injection 15 mg 2022-04 21:15: 00 03-03 21:54 :00 No 15mg 15 mg, Slow IV Push, ONCE NOW, 1 dose, On 03/03/23 at 1515, AUDREY [facility] NaCl 0.9% (NS) bolus infusion 1,000 mL 2022-04 21:15: 00 03-03 23:42 :00 No 1000mL at 999 mL/hr, 1,000 mL, IV Piggyback, ONCE, 1 dose, On 03/03/23 at 1515, STAT [facility] ketorolac 10 mg tablet 2022-04 00:00: 00 Yes [id number] 10mg Take 1 tablet by mouth every 6 (six) hours as needed for Pain (scale 4-6) or Pain (scale 7-10). [facility] hyoscyamine sulfate (LEVSIN/SL) 0.125 mg sublingual tablet 2022-04 00:00: 00 Yes [id number]mg Place 2 tablets under the tongue every 6 (six) hours as needed (Abdominal pain or cramping). [facility] acetaminoph en (TYLENOL ARTHRITIS PAIN) 650 mg CR tablet 2022-04 00:00: 00 Yes [id number] 650mg Take 1 tablet by mouth every 8 (eight) hours as needed for Pain. [facility] cefpodoxime 100 mg tablet 2022-04 00:00: 00 Yes [id number] 100mg Take 1 tablet by mouth in the morning and 1 tablet in the evening. [facility] ketorolac 10 mg tablet 2022-04 00:00: 00 Yes [id number] 10mg Take 1 tablet by mouth every 6 (six) hours as needed for Pain (scale 4-6) or Pain (scale 7-10). [facility] hyoscyamine sulfate (LEVSIN/SL) 0.125 mg sublingual tablet 2022-04 00:00: 00 Yes [id number] .25mg Place 2 tablets under the tongue every 6 (six) hours as needed (Abdominal pain or cramping). [facility] acetaminoph en (TYLENOL ARTHRITIS PAIN) 650 mg CR tablet 2022-04 00:00: 00 Yes [id number] 650mg Take 1 tablet by mouth every 8 (eight) hours as needed for Pain. [facility] cefpodoxime 100 mg tablet 2022-04 00:00: 00 Yes [id number] 100mg Take 1 tablet by mouth in the morning and 1 tablet in the evening. [facility] ketorolac 10 mg tablet 2022-04 00:00: 00 Yes [id number] 10mg Take 1 tablet by mouth every 6 (six) hours as needed for Pain (scale 4-6) or Pain (scale 7-10). [facility] hyoscyamine sulfate (LEVSIN/SL) 0.125 mg sublingual tablet 2022-04 00:00: 00 Yes [id number] 2 tablets under the tongue every 6 (six) hours as needed (Abdominal pain or cramping). [facility] acetaminoph en (TYLENOL ARTHRITIS PAIN) 650 mg CR tablet 2022-04 00:00: 00 Yes [id number] 650mg Take 1 tablet by mouth every 8 (eight) hours as needed for Pain. [facility] cefpodoxime 100 mg tablet 2022-04 00:00: 00 Yes [id number] 100mg Take 1 tablet by mouth in the morning and 1 tablet in the evening. [facility] ketorolac 10 mg tablet 2022-04 00:00: 00 Yes [id number] 10mg Take 1 tablet by mouth every 6 (six) hours as needed for Pain (scale 4-6) or Pain (scale 7-10). [facility] hyoscyamine sulfate (LEVSIN/SL) 0.125 mg sublingual tablet 2022-04 00:00: 00 Yes [id number] .25mg Place 2 tablets under the tongue every 6 (six) hours as needed (Abdominal pain or cramping). [facility] acetaminoph en (TYLENOL ARTHRITIS PAIN) 650 mg CR tablet 2022-04 00:00: 00 Yes [id number] 650mg Take 1 tablet by mouth every 8 (eight) hours as needed for Pain. [facility] cefpodoxime 100 mg tablet 2022-04 00:00: 00 Yes [id number] 100mg Take 1 tablet by mouth in the morning and 1 tablet in the evening. [facility] metroNIDAZO LE 500 mg tablet 12-03 00:00: 00 Yes [id number] 500mg Take 1 tablet by mouth in the morning and 1 tablet in the evening. [facility] metroNIDAZO LE 500 mg tablet 2022-0 12-03 00:00: 00 Yes [id number] 500mg Take 1 tablet by mouth in the morning and 1 tablet in the evening. [facility] metroNIDAZO LE 500 mg tablet 2022-0 12-03 00:00: 00 Yes [id number] 500mg Take 1 tablet by mouth in the morning and 1 tablet in the evening. [facility] metroNIDAZO LE 500 mg tablet 0 12-03 00:00: 00 Yes [id number] 500mg Take 1 tablet by mouth in the morning and 1 tablet in the evening. [facility] metroNIDAZO LE 500 mg tablet 12-03 00:00: 00 Yes [id number] 500mg Take 1 tablet by mouth in the morning and 1 tablet in the evening. [facility] metroNIDAZO LE 500 mg tablet 0 12-03 00:00: 00 Yes [id number] 500mg Take 1 tablet by mouth in the morning and 1 tablet in the evening. [facility] metroNIDAZO LE 500 mg tablet 12-03 00:00: 00 Yes [id number] 500mg Take 1 tablet by mouth in the morning and 1 tablet in the evening. [facility] metroNIDAZO LE 500 mg tablet 12-03 00:00: 00 Yes [id number] 500mg Take 1 tablet by mouth in the morning and 1 tablet in the evening. [facility] fluconazole (DIFLUCAN) 150 mg tablet 12-03 00:00: 00 12-04 04:59 :00 No [id number] 150mg Take 1 tablet by mouth once now for 1 dose. [facility] fluconazole (DIFLUCAN) 150 mg tablet 12-03 00:00: 00 12-04 04:59 :00 No [id number] 150mg Take 1 tablet by mouth once now for 1 dose. [facility] fluconazole (DIFLUCAN) 150 mg tablet 12-03 00:00: 00 12-04 04:59 :00 No [id number] 150mg Take 1 tablet by mouth once now for 1 dose. [facility] fluconazole (DIFLUCAN) 150 mg tablet 2022-0 8-07 00:00: 00 12-04 04:59 :00 No [id number] 150mg Take 1 tablet by mouth once now for 1 dose. [facility] metroNIDAZO LE 500 mg tablet 3-0 3-10 00:00: 00 Yes [id number] 500mg Take 1 tablet by mouth in the morning and 1 tablet in the evening. [facility] metroNIDAZO LE 500 mg tablet 3-0 3-10 00:00: 00 Yes [id number] 500mg Take 1 tablet by mouth in the morning and 1 tablet in the evening. [facility] metroNIDAZO LE 500 mg tablet 2022-0 3-10 00:00: 00 Yes [id number] 500mg Take 1 tablet by mouth in the morning and 1 tablet in the evening. [facility] metroNIDAZO LE 500 mg tablet 2022-0 3-10 00:00: 00 Yes [id number] 500mg Take 1 tablet by mouth in the morning and 1 tablet in the evening. [facility] metroNIDAZO LE 500 mg tablet 2022-0 3-10 00:00: 00 Yes [id number] 500mg Take 1 tablet by mouth in the morning and 1 tablet in the evening. [facility] metroNIDAZO LE 500 mg tablet 3-0 3-10 00:00: 00 Yes [id number] 500mg Take 1 tablet by mouth in the morning and 1 tablet in the evening. [facility] metroNIDAZO LE 500 mg tablet 3-0 3-10 00:00: 00 Yes [id number] 500mg Take 1 tablet by mouth in the morning and 1 tablet in the evening. [facility] metroNIDAZO LE 500 mg tablet 3-0 3-10 00:00: 00 Yes [id number] 500mg Take 1 tablet by mouth in the morning and 1 tablet in the evening. [facility] metroNIDAZO LE 500 mg tablet 3-0 3-10 00:00: 00 Yes [id number] 500mg Take 1 tablet by mouth in the morning and 1 tablet in the evening. [facility] metroNIDAZO LE 500 mg tablet 3-0 3-10 00:00: 00 Yes [id number] 500mg Take 1 tablet by mouth in the morning and 1 tablet in the evening. [facility] metroNIDAZO LE 500 mg tablet 3-0 3-10 00:00: 00 Yes [id number] 500mg Take 1 tablet by mouth in the morning and 1 tablet in the evening. [facility] metroNIDAZO LE 500 mg tablet 3-0 3-10 00:00: 00 Yes [id number] 500mg Take 1 tablet by mouth in the morning and 1 tablet in the evening. [facility] metroNIDAZO LE 500 mg tablet 2022-0 3-10 00:00: 00 Yes [id number] 500mg Take 1 tablet by mouth in the morning and 1 tablet in the evening. [facility] metroNIDAZO LE 500 mg tablet 3-0 3-10 00:00: 00 Yes [id number] 500mg Take 1 tablet by mouth in the morning and 1 tablet in the evening. [facility] fluconazole (DIFLUCAN) 150 mg tablet 2022-0 3-10 00:00: 00 07-07 05:59 :00 No [id number] 150mg Take 1 tablet by mouth once now for 1 dose. [facility] fluconazole (DIFLUCAN) 150 mg tablet 2022-0 3-10 00:00: 00 07-07 05:59 :00 No [id number] 150mg Take 1 tablet by mouth once now for 1 dose. [facility] ampicillin 500 mg capsule 2022-0 309 00:00: 00 07-16 04:59 :00 No [id number] 500mg Take 1 capsule by mouth 4 (four) times daily for 10 days. [facility] ampicillin 500 mg capsule 3-0 3-09 00:00: 00 07-16 04:59 :00 No [id number] 500mg Take 1 capsule by mouth 4 (four) times daily for 10 days. [facility] ampicillin 500 mg capsule 3-0 3-09 00:00: 00 07-16 04:59 :00 No [id number] 500mg Take 1 capsule by mouth 4 (four) times daily for 10 days. [facility] ampicillin 500 mg capsule 3-0 3-09 00:00: 00 07-16 04:59 :00 No [id number] 500mg Take 1 capsule by mouth 4 (four) times daily for 10 days. [facility] ampicillin 500 mg capsule 3-0 3-09 00:00: 00 07-16 04:59 :00 No [id number] 500mg Take 1 capsule by mouth 4 (four) times daily for 10 days. [facility] ampicillin 500 mg capsule 3-0 3-09 00:00: 00 07-16 04:59 :00 No [id number] 500mg Take 1 capsule by mouth 4 (four) times daily for 10 days. [facility] ampicillin 500 mg capsule 3-0 3-09 00:00: 00 07-16 04:59 :00 No [id number] 500mg Take 1 capsule by mouth 4 (four) times daily for 10 days. [facility] ampicillin 500 mg capsule 3-0 3-09 00:00: 00 07-16 04:59 :00 No [id number] 500mg Take 1 capsule by mouth 4 (four) times daily for 10 days. [facility] ampicillin 500 mg capsule 3-0 3-09 00:00: 00 07-16 04:59 :00 No [id number] 500mg Take 1 capsule by mouth 4 (four) times daily for 10 days. [facility] ESTERone (DEPO-PROVE RA) syringe 150 mg 2023-0 3-07 21:30: 00 06-04 21:29 :00 No [id number] 150mg [facility] medroxyPROG ESTERone (DEPO-PROVE RA) syringe 150 mg 2023-0 3-07 21:30: 00 06-04 21:29 :00 No [id number] 150mg [facility] medroxyPROG ESTERone (DEPO-PROVE RA) syringe 150 mg 2023-0 3-07 21:30: 00 06-04 21:29 :00 No [id number] 150mg Un[facility] s [facility] medroxyPROG ESTERone (DEPO-PROVE RA) syringe 150 mg 2023-0 3-07 21:30: 00 06-04 21:29 :00 No [id number] 150mg Un[facility] s [facility] medroxyPROG ESTERone (DEPO-PROVE RA) syringe 150 mg 2023-0 3-07 21:30: 00 06-04 21:29 :00 No [id number] 150mg [facility] s [facility] medroxyPROG ESTERone (DEPO-PROVE RA) syringe 150 mg 2023-0 3-07 21:30: 00 06-04 21:29 :00 No [id number] 150mg Univer s [facility] medroxyPROG ESTERone (DEPO-PROVE RA) syringe 150 mg 3-0 3-07 21:30: 00 06-04 21:29 :00 No [id number] 150mg Univer s [facility] medroxyPROG ESTERone (DEPO-PROVE RA) syringe 150 mg 3-0 3-07 21:30: 00 06-04 21:29 :00 No [id number] 150mg Univer s [facility] medroxyPROG ESTERone (DEPO-PROVE RA) syringe 150 mg 2023-0 3-07 21:30: 00 06-04 21:29 :00 No [id number] 150mg Univer s [facility] medroxyPROG ESTERone (DEPO-PROVE RA) syringe 150 mg 2023-0 3-07 21:30: 00 06-04 21:29 :00 No [id number] 150mg Univer s [facility] medroxyPROG ESTERone (DEPO-PROVE RA) syringe 150 mg 2023-0 3-07 21:30: 00 06-04 21:29 :00 No [id number] 150mg Univer s [facility] medroxyPROG ESTERone (DEPO-PROVE RA) syringe 150 mg 2023-0 3-07 21:30: 00 06-04 21:29 :00 No [id number] 150mg Un[facility] s [facility] medroxyPROG ESTERone (DEPO-PROVE RA) syringe 150 mg 2023-0 3-07 21:30: 00 06-04 21:29 :00 No [id number] 150mg [facility] s [facility] medroxyPROG ESTERone (DEPO-PROVE RA) syringe 150 mg 2023-0 3-07 21:30: 00 06-04 21:29 :00 No [id number] 150mg Un[facility] s [facility] medroxyPROG ESTERone (DEPO-PROVE RA) syringe 150 mg 3-0 3-07 21:30: 00 06-04 21:29 :00 No [id number] 150mg Un[facility] s [facility] medroxyPROG ESTERone (DEPO-PROVE RA) syringe 150 mg 3-0 3-07 21:30: 00 06-04 21:29 :00 No [id number] 150mg Un[facility] s [facility] medroxyPROG ESTERone (DEPO-PROVE RA) syringe 150 mg 3-0 3-07 21:30: 00 06-04 21:29 :00 No [id number] 150mg Univer s [facility] medroxyPROG ESTERone (DEPO-PROVE RA) syringe 150 mg 2023-0 3-07 21:30: 00 06-04 21:29 :00 No [id number] 150mg Un[facility] s [facility] medroxyPROG ESTERone (DEPO-PROVE RA) syringe 150 mg 3-0 3-07 21:30: 00 06-04 21:29 :00 No [id number] 150mg Univer s [facility] medroxyPROG ESTERone (DEPO-PROVE RA) syringe 150 mg 2023-0 3-07 21:30: 00 06-04 21:29 :00 No [id number] 150mg Univer s [facility] medroxyPROG ESTERone (DEPO-PROVE RA) syringe 150 mg 2023-0 3-07 21:30: 00 06-04 21:29 :00 No [id number] 150mg 150 mg, Intramuscu lar, [id number], 4 doses, First dose on Sat07/03/22 at 1530, Last dose on Sat03/12/23 at 1530, Routine [facility] medroxyPROG ESTERone (DEPO-PROVE RA) syringe 150 mg 07-03 21:30: 00 06-04 21:29 :00 No [id number] 150mg Univer [facility] medroxyPROG ESTERone (DEPO-PROVE RA) syringe 150 mg 07-03 21:30: 00 06-04 21:29 :00 No [id number] 150mg 150 mg, Intramuscu lar, [id number], 4 doses, First dose on Sat07/03/22 at 1530, Last dose on Sat03/12/23 at 1530, Routine [facility] medroxyPROG ESTERone (DEPO-PROVE RA) syringe 150 mg 07-03 21:30: 00 06-04 21:29 :00 No [id number] 150mg [facility] levoFLOXaci n (LEVAQUIN) tablet 500 mg 10-22 04:30: 00 10-22 03:43 :00 No 500mg 500 mg, Oral, ONCE, 1 dose, Sat10/21/20 at 2330, AUDREY
Re ason for Anti-Infec tive: Documented Infection< br>Documen santa Infection Site: Urine
D uration of Therapy: Other (see Comments) [facility] levoFLOXaci n (LEVAQUIN) 500 mg tablet 10-21 00:00: 00 Yes [id number] 500mg Take 1 tablet by mouth every 24 (twenty-fo ur) hours. [facility] phenazopyri dine 200 mg tablet 10-21 00:00: 00 Yes [id number] 200mg Take 1 tablet by mouth 3 (three) times daily. [facility] levoFLOXaci n (LEVAQUIN) 500 mg tablet 10-21 00:00: 00 Yes [id number] 500mg Take 1 tablet by mouth every 24 (twenty-fo ur) hours. [facility] phenazopyri dine 200 mg tablet 10-21 00:00: 00 Yes [id number] 200mg Take 1 tablet by mouth 3 (three) times daily. [facility] levoFLOXaci n (LEVAQUIN) 500 mg tablet 10-21 00:00: 00 Yes [id number] 500mg Take 1 tablet by mouth every 24 (twenty-fo ur) hours. [facility] phenazopyri dine 200 mg tablet 10-21 00:00: 00 Yes [id number] 200mg Take 1 tablet by mouth 3 (three) times daily. [facility] levoFLOXaci n (LEVAQUIN) 500 mg tablet 10-21 00:00: 00 Yes [id number] 500mg Take 1 tablet by mouth every 24 (twenty-fo ur) hours. [facility] phenazopyri dine 200 mg tablet 10-21 00:00: 00 Yes [id number] 200mg Take 1 tablet by mouth 3 (three) times daily. [facility] levoFLOXaci n (LEVAQUIN) 500 mg tablet 10-21 00:00: 00 Yes [id number] 500mg Take 1 tablet by mouth every 24 (twenty-fo ur) hours. [facility] phenazopyri dine 200 mg tablet 10-21 00:00: 00 Yes [id number] 200mg Take 1 tablet by mouth 3 (three) times daily. [facility] phenazopyri dine 200 mg tablet 10-21 00:00: 00 Yes [id number] 200mg Take 1 tablet by mouth 3 (three) times daily. [facility] phenazopyri dine 200 mg tablet 10-21 00:00: 00 Yes [id number] 200mg Take 1 tablet by mouth 3 (three) times daily. [facility] phenazopyri dine 200 mg tablet 10-21 00:00: 00 Yes [id number] 200mg Take 1 tablet by mouth 3 (three) times daily. [facility] phenazopyri dine 200 mg tablet 10-21 00:00: 00 Yes [id number] 200mg Take 1 tablet by mouth 3 (three) times daily. [facility] phenazopyri dine 200 mg tablet 10-21 00:00: 00 Yes [id number] 200mg Take 1 tablet by mouth 3 (three) times daily. [facility] phenazopyri dine 200 mg tablet 10-21 00:00: 00 Yes [id number] 200mg Take 1 tablet by mouth 3 (three) times daily. [facility] phenazopyri dine 200 mg tablet 10-21 00:00: 00 Yes [id number] 200mg Take 1 tablet by mouth 3 (three) times daily. [facility] phenazopyri dine 200 mg tablet 10-21 00:00: 00 Yes [id number] 200mg Take 1 tablet by mouth 3 (three) times daily. [facility] levoFLOXaci n (LEVAQUIN) 500 mg tablet 10-21 00:00: 00 Yes [id number] 500mg Take 1 tablet by mouth every 24 (twenty-fo ur) hours. [facility] phenazopyri dine 200 mg tablet 10-21 00:00: 00 Yes [id number] 200mg Take 1 tablet by mouth 3 (three) times daily. [facility] phenazopyri dine 200 mg tablet 10-21 00:00: 00 Yes [id number] 200mg Take 1 tablet by mouth 3 (three) times daily. [facility] phenazopyri dine 200 mg tablet 10-21 00:00: 00 Yes [id number] 200mg Take 1 tablet by mouth 3 (three) times daily. [facility] phenazopyri dine 200 mg tablet 10-21 00:00: 00 Yes [id number] 200mg Take 1 tablet by mouth 3 (three) times daily. [facility] phenazopyri dine 200 mg tablet 10-21 00:00: 00 Yes [id number] 200mg Take 1 tablet by mouth 3 (three) times daily. [facility] phenazopyri dine 200 mg tablet 10-21 00:00: 00 Yes [id number] 200mg Take 1 tablet by mouth 3 (three) times daily. [facility] phenazopyri dine 200 mg tablet 10-21 00:00: 00 Yes [id number] 200mg Take 1 tablet by mouth 3 (three) times daily. [facility] phenazopyri dine 200 mg tablet 10-21 00:00: 00 Yes [id number] 200mg Take 1 tablet by mouth 3 (three) times daily. [facility] levoFLOXaci n (LEVAQUIN) 500 mg tablet 10-21 00:00: 00 Yes [id number] 500mg Take 1 tablet by mouth every 24 (twenty-fo ur) hours. [facility] phenazopyri dine 200 mg tablet 10-21 00:00: 00 Yes [id number] 200mg Take 1 tablet by mouth 3 (three) times daily. [facility] levoFLOXaci n (LEVAQUIN) 500 mg tablet 10-21 00:00: 00 Yes [id number] 500mg Take 1 tablet by mouth every 24 (twenty-fo ur) hours. [facility] phenazopyri dine 200 mg tablet 10-21 00:00: 00 Yes [id number] 200mg Take 1 tablet by mouth 3 (three) times daily. [facility] levoFLOXaci n (LEVAQUIN) 500 mg tablet 10-21 00:00: 00 Yes [id number] 500mg Take 1 tablet by mouth every 24 (twenty-fo ur) hours. [facility] phenazopyri dine 200 mg tablet 10-21 00:00: 00 Yes [id number] 200mg Take 1 tablet by mouth 3 (three) times daily. [facility] levoFLOXaci n (LEVAQUIN) 500 mg tablet 10-21 00:00: 00 Yes [id number] 500mg Take 1 tablet by mouth every 24 (twenty-fo ur) hours. [facility] phenazopyri dine 200 mg tablet 10-21 00:00: 00 Yes [id number] 200mg Take 1 tablet by mouth 3 (three) times daily. [facility] levoFLOXaci n (LEVAQUIN) 500 mg tablet 10-21 00:00: 00 Yes [id number] 500mg Take 1 tablet by mouth every 24 (twenty-fo ur) hours. [facility] phenazopyri dine 200 mg tablet 10-21 00:00: 00 Yes [id number] 200mg Take 1 tablet by mouth 3 (three) times daily. [facility] levoFLOXaci n (LEVAQUIN) 500 mg tablet 10-21 00:00: 00 07-06 00:00 :00 No [id number] 500mg Take 1 tablet by mouth every 24 (twenty-fo ur) hours. [facility] levoFLOXaci n (LEVAQUIN) 500 mg tablet 10-21 00:00: 00 07-06 00:00 :00 No [id number] 500mg Take 1 tablet by mouth every 24 (twenty-fo ur) hours. [facility] Vital Signs Vital Name Observation Time Observation Value Comments S ourana Systolic blood pressure 2023-03-12 21:38:00 105 mm[Hg] [facility] Diastolic blood pressure 2023-03-12 21:38:00 69 mm[Hg] [facility] Heart rate 2023-03-12 21:38:00 104 /min [facility] Body temperature 2023-03-12 21:38:00 7.78 Yolanda [facility] Respiratory rate 2023-03-12 21:38:00 16 /min [facility] Body height 2023-03-12 21:38:00 154.9 cm [facility] Body weight 2023-03-12 21:38:00 47.492 kg [facility] BMI 2023-03-12 21:38:00 19.78 kg/m2 [facility] Systolic blood pressure 2023-03-03 20:05:00 108 mm[Hg] [facility] Diastolic blood pressure 2023-03-03 20:05:00 77 mm[Hg] [facility] Heart rate 2023-03-03 20:05:00 110 /min [facility] Body temperature 2023-03-03 20:05:00 37.39 Yolanda [facility] Respiratory rate 2023-03-03 20:05:00 16 /min [facility] Body height 2023-03-03 20:05:00 154.9 cm [facility] Body weight 2023-03-03 20:05:00 44.861 kg [facility] BMI 2023-03-03 20:05:00 18.69 kg/m2 [facility] Oxygen saturation in Arterial blood by Pulse oximetry 2023-03-03 20:05:00 99 /min [facility] Systolic blood pressure 2022-11-29 19:43:00 106 mm[Hg] [facility] Diastolic blood pressure 2022-11-29 19:43:00 72 mm[Hg] [facility] Heart rate 2022-11-29 19:43:00 88 /min [facility] Body temperature 2022-11-29 19:43:00 35.94 Yolanda [facility] Respiratory rate 2022-11-29 19:43:00 18 /min [facility] Body height 2022-11-29 19:43:00 154.9 cm [facility] Body weight 2022-11-29 19:43:00 45.36 kg [facility] BMI 2022-11-29 19:43:00 18.89 kg/m2 [facility] Systolic blood pressure 2022-07-03 19:53:00 113 mm[Hg] [facility] Diastolic blood pressure 2022-07-03 19:53:00 78 mm[Hg] [facility] Heart rate 2022-07-03 19:53:00 107 /min [facility] Body temperature 2022-07-03 19:53:00 36.83 Yolanda [facility] Respiratory rate 2022-07-03 19:53:00 17 /min [facility] Body height 2022-07-03 19:53:00 154.9 cm [facility] Body weight 2022-07-03 19:53:00 45.995 kg [facility] BMI 2022-07-03 19:53:00 19.16 kg/m2 [facility] Systolic blood pressure 2020-10-22 03:55:00 104 mm[Hg] [facility] Diastolic blood pressure 2020-10-22 03:55:00 81 mm[Hg] [facility] Heart rate 2020-10-22 03:55:00 97 /min [facility] Respiratory rate 2020-10-22 03:55:00 16 /min [facility] Oxygen saturation in Arterial blood by Pulse oximetry 2020-10-22 03:55:00 100 /min [facility] Body temperature 2020-10-22 01:21:00 37.94 Yolanda [facility] Body height 2020-10-22 01:21:00 154.9 cm [facility] Body weight 2020-10-22 01:21:00 44.589 kg [facility] BMI 2020-10-22 01:21:00 18.57 kg/m2 [facility] Procedures Procedure Date / Time Performed Performing Clinicia n Source POCT TEST 2023-03-12 00:00:00 Burak Tracy [facility] URINALYSIS 2023-03-03 21:36:00 Michael Bailey [facility] POCT TEST 2023-03-03 21:36:00 Monica Bailey [facility] ASSIGNMENT OF BENEFITS 2022-07-03 19:31:22 Docto r Unassigned, Leyner [facility] POCT TEST 2022-07-03 00:00:00 Burak Tracy [facility] POCT URINALYSIS W/O SPECIFIC GRAVITY 2022-07-03 00:00:00 Esperanza Tracy [facility] URINALYSIS 2020-10-22 01:27:00 Julio César Gómez [facility] POCT TEST 2020-10-22 01:26:00 Julio César Gómez [facility] NOTICE OF PRIVACY PRACTICES 2020-10-22 01:04:45 Doctor Unassigned, Leyner [facility] CONSENT/REFUSAL FOR DIAGNOSIS AND TREATMENT 2020-10-22 01:04:22 Doctor Unassigned, Leyner [facility] Encounters Start Date/Time End Date/Time Encounter Type Admission Type Attending Clinicians Care Facility Care Department Encounter ID Source 2019-05-10 00:40:00 Inpatient [facility] [id number] [facility] 2023-03-26 13:45:00 2023-03-26 13:45:00 Outpatient ESPERANZA ROMERO [facility] [id number] [facility] 2023-03-12 15:15:00 2023-03-12 15:53:00 Outpatient ESPERANZA ROMERO [facility] [id number] [facility] 2023-03-12 15:15:00 2023-03-12 15:53:00 Office Visit Esperanza Tracy [facility] CIRCULATION [facility] MATERNAL & CHILD [facility] [id number] 350.1.13.10 4.2.7.2.686 [id number] [facility] 2023-03-12 00:00:00 2023-03-12 00:00:00 Patient Secure Msg Esperanza Tracy [facility] CIRCULATION [facility] MATERNAL & CHILD [facility] [id number] 350.1.13.10 4.2.7.2.686 [id number] [facility] 2023-03-11 16:15:00 2023-03-11 16:15:00 Outpatient JAVON EASTMAN [facility] [id number] [facility] 2023-03-05 10:30:00 2023-03-05 10:30:00 Outpatient JAVON EASTMAN [facility] [id number] [facility] 2023-03-03 14:06:00 2023-03-03 17:44:00 Emergency X MICHAEL BAILEY [facility] ERT [id number] [facility] 2023-03-03 14:06:00 2023-03-03 17:44:00 Emergency Michael Bailey [facility] 1..840.114 350.1.13.10 4.2.7.2.686 [id number] [facility] 2022-12-03 00:00:00 2022-12-03 00:00:00 Telephone Esperanza Tracy [facility] CIRCULATION [facility] & CHILD [facility] 1..840.114 350.1.13.10 4.2.7.2.686 [id number] [facility] 2022-11-29 15:30:00 2022-11-29 15:30:00 Office Visit Esperanza Tracy [facility] CIRCULATION [facility] CHILD [facility] 1..840.114 350.1.13.10 4.2.7.2.686 [id number] [facility] 2022-11-29 15:30:00 2022-11-29 15:22:37 Outpatient R ESPERANZA TRACY [facility] [id number] [facility] 2022-11-28 12:30:00 2022-11-28 12:30:00 Outpatient R JAVON JIMENEZ [facility] [id number] [facility] 2022-09-25 15:00:00 2022-09-25 15:00:00 Outpatient R ESPERANZA [facility]Y [facility] [id number] [facility] 2022-07-10 00:00:00 2022-07-10 00:00:00 Telephone Esperanza Tracy [facility] CIRCULATION [facility] & CHILD [facility] 1.2.840.114 350.1.13.10 4.2.7.2.686 [id number] [facility] 2022-07-06 00:00:00 2022-07-06 00:00:00 Telephone Esperanza Tracy [facility] CIRCULATION [facility] & CHILD [facility] 1.2.840.114 350.1.13.10 4.2.7.2.686 [id number] [facility] 2022 00:00:00 2022 00:00:00 Telephone Esperanza Tracy [facility] CIRCULATION [facility] 1.2840.114 350.1.13.10 4.2.7.2.686 [id number] [facility] 2022-07-03 13:30:00 2022-07-03 14:51:18 Outpatient R ESPERANZA TRACY [facility] [id number] [facility] 2022-07-03 13:30:00 2022-07-03 14:51:18 Office Visit Esperanza Tracy [facility] CIRCULATION [facility] 1.2.840.114 350.1.13.10 4.2.7.2.686 [id number] 107 [id number] [facility] 2022-07-03 00:00:00 2022-07-03 00:00:00 Orders Only Doctor Unassigned, Leyner [facility] 1.2840.114 350.1.13.10 4.2.7.2.686 [id number] [facility] 2022-07-02 14:15:00 2022-07-02 14:15:00 Outpatient R HÉCTOR YOON CHERYAL [facility] [id number] [facility] 2022-07-02 00:00:00 2022-07-02 00:00:00 Telephone Pcp, Patient Does Not Have A [facility] CIRCULATION [facility] MATERNAL & [facility]] 1.2.840.114 350.1.13.10 4.2.7.2.686 [id number] [facility] 2022-06-26 00:00:00 2022-06-26 00:00:00 Patient Secure Msg Doctor Unassigned, Leyner [facility] 1.2.840.114 350.1.13.10 4.2.7.2.686 [id number] [facility] 2021-11-20 10:08:00 2021-11-20 10:08:00 Outpatient DIREEN_SO [facility] [id number] Ruchi brandon [facility] 2020-10-21 20:27:00 2020-10-21 23:50:00 Emergency Julio César Gómez [facility] 1..840.114 350.1.13.10 4.2.7.2.686 [id number] [facility] 2020-10-21 20:27:00 2020-10-21 20:27:00 Emergency X [facility] ERT [id number] [facility] Results Test Description Test Time Test Comments Results Result Co mments Source [id number] 22:40:00* Test Item Value Reference Range Interpretation Comme [facility] POCT PREG (test code = 1605) Negative On board controls acceptable with C Line (test code = 3574) Yes POCT PREG LOT # (test code = 3575) POCT PREG TEST DATE ( test code = 3576) [facility] [id number] 21:36:00* Test Item Value Reference Range Interpretation Comme [facility] POCT PREG (test code = 1605) Negative On board controls acceptable with C Line (test code = 3574) Yes POCT PREG LOT # (test code = 3575) [id number] POCT PREG TEST DATE ( test code = 3576) 05-01-2024 Lab Interpretation (test cod e = 52018-3) Normal [facility] URINALYSIS W/O SPECIFIC [id number] 20:01:00* Test Item Value Reference Range Interpretation Comme nts POCT PH U (test code = 3254) 6 mg/dl 5-8 POCT U LEUK EST (test code = 3263) 2+ Negative - Negative POCT U NIT (test code = 3262) negative Negative - Negati ve POCT U PROT (test code = 3259) 1+ Negative - Negat nalini POCT U GLU (test code = 3256) negative Negative - Negati ve POCT U KETONE (test code = 3258) negative Negative - Neg ative POCT U BLD (test code = 3257) 250 Negative - Negati ve [facility] [id number] 20:01:00* Test Item Value Reference Range Interpretation Comme nts POCT PREG (test code = 1605) Negative On board controls acceptable with C Line (test code = 3574) Yes POCT PREG LOT # (test code = 3575) POCT PREG TEST DATE ( test code = 357) [facility] URINALYSIS W/O SPECIFIC [id number] 20:01:00* Test Item Value Reference Range Interpretation Comme nts POCT PH U (test code = 3254) 6 mg/dl 5-8 POCT U LEUK EST (test code = 3263) 2+ Negative - Negative POCT U NIT (test code = 3262) negative Negative - Negati ve POCT U PROT (test code = 3259) 1+ Negative - Negat nalini POCT U GLU (test code = 3256) negative Negative - Negati ve POCT U KETONE (test code = 3258) negative Negative - Neg ative POCT U BLD (test code = 3257) 250 Negative - Negati ve [facility] [id number] 20:01:00* Test Item Value Reference Range Interpretation Comme nts POCT PREG (test code = 1605) Negative On board controls acceptable with C Line (test code = 3574) Yes POCT PREG LOT # (test code = 3575) POCT PREG TEST DATE ( test code = 3576) [facility] 01:59:22* Test Item Value Reference Range Interpretation Comme nts APPEARANCE (test code = 1278048217) Cloudy Clear A COLOR (test code = 9908887020) Ynes Yellow A PH (test code = 7562179637) 4.8-8.0 SP GRAVITY (test code = 9838769455) 1.003-1.030 GLU U QUAL (test code = 9692889775) Normal Normal BLOOD (test code = 2650129008) Negative Negative KETONES (test code = 7869014751) Negative Negative PROTEIN (test code = 2887-8) Negative Negative UROBILIN (test code = 0599700619) 4.0 mg/dL Normal A BILIRUBIN (test code = 4056864883) Negative Negative NITRITE (test code = 4551352288) Negative Negative LEUK MCKENZIE (test code = 0192096145) 250/uL Negative A RBC/HPF (test code = 1080564096) See_Comment H [Automated messa ge] The system which generated this result transmitted reference range: 0 - 3 HPF. The reference range was not used to interpret this result as normal/abnormal. WBC/HPF (test code = 9235066623) See_Comment H [Automated messa ge] The system which generated this result transmitted reference range: 0 - 5 HPF. The reference range was not used to interpret this result as normal/abnormal. BACTERIA (test code = 0742714569) Few Negative A MUCOUS (test code = 9068385572) Marked Negative LPF A AMORPHOUS (test code = 2304383218) Rare Rare HPF SQ EPITH (test code = 8268882956) HPF Lab Interpretation (test code = 47422-6) Abnormal [facility] [id number] 01:26:00* Test Item Value Reference Range Interpretation Comme nts POCT PREG (test code = 1605) Negative On board controls acceptable with C Line (test code = 3574) Present POCT PREG LOT # (test code = 3575) HCG [id number] POCT PREG TEST DATE ( test code = 3576) 04/28/2022 Lab Interpretation (test cod e = 90852-8) Normal [facility] METABOLIC [id number] 05:20:00* Test Item Value Reference Range Interpretation Comme nts SODIUM (test code = NA) 142 mmol/L 136-145 N POTASSIUM (test code = K) 3.9 mmol/L 3.5-5.1 N CHLORIDE (test code = CL) 112.0 mmol/L 98-107 H CARBON DIOXIDE (test code = CO2) 25.0 mmol/L 21-32 N ANION GAP (test code = GAP) 8.9 10-20 L GLUCOSE (test code = GLU) 92 mg/dL 74-106 N BLOOD UREA NITROGEN (test code = BUN) 3 mg/dL 7-18 L GLOMERULAR FILTRATION RATE (test code = GFR) > 60 mL/min >=60 Estimated GFR by using Modified MDRD formula.Chronic kidney disease is defined as either kidney damageor GFR <60 mL/min/1.73 m2 for >3 months. CREATININE (test code = CREAT) 0.30 mg/dL 0.55-1.02 L Note change in reference range due to change in reagent. BUN/CREATININE RATIO (test code = BUN/CREA) 8.7 10-20 L CALCIUM (test code = CA) 7.9 mg/dL 8.5-10.1 L CBC W/AUTO [id number] 05:12:00* Test Item Value Reference Range Interpretation Comme nts WHITE BLOOD CELL (test code = WBC) 8.3 K/mm3 4.5-12.5 N RED BLOOD CELL (test code = RBC) 3.40 mill/mm3 3.7-5.2 L HEMOGLOBIN (test code = HGB) 9.1 gram/dL 11.5-15.5 L HEMATOCRIT (test code = HCT) 29.1 % 36.0-46.0 L MEAN CELL VOLUME (test code = MCV) 85.6 fL 80-98 N MEAN CELL HGB (test code = MCH) 26.8 picogram 27.0-33.0 L MEAN CELL HGB CONCETRATION (test code = MCHC) 31.3 gram/dL 33.0-36.0 L RED CELL DISTRIBUTION WIDTH (test code = RDW) 15.3 % 11.6-16.2 N RED CELL DISTRIBUTION WIDTH SD (test code = RDW-SD) 48.3 fL 37.0-51.0 N PLATELET COUNT (test code = PLT) 300 K/mm3 150-450 RESULT VERIFIED BY REPEAT ANALYSIS MEAN PLATELET VOLUME (test code = MPV) 11.0 fL 6.7-11.0 N NEUTROPHIL % (test code = NT%) 61.6 % 39.0-69.0 N IMMATURE GRANULOCYTE % (test code = IG%) 0.4 % 0.0-5.0 N LYMPHOCYTE % (test code = LY%) 23.5 % 25.0-55.0 L MONOCYTE % (test code = MO%) 13.6 % 0.0-10.0 H EOSINOPHIL % (test code = EO%) 0.5 % 0.0-5.0 N BASOPHIL % (test code = BA%) 0.4 % 0.0-1.0 N NUCLEATED RBC % (test code = NRBC%) 0.0 % 0-0 N NEUTROPHIL # (test code = NT#) 5.11 K/mm3 1.8-7.7 N IMMATURE GRANULOCYTE # (test code = IG#) 0.03 x10 3/uL 0-0.03 N LYMPHOCYTE # (test code = LY#) 1.95 K/mm3 1.0-5.0 N MONOCYTE # (test code = MO#) 1.13 K/mm3 0-0.8 H EOSINOPHIL # (test code = EO#) 0.04 K/mm3 0.0-0.5 N BASOPHIL # (test code = BA#) 0.03 K/mm3 0.0-0.2 N NUCLEATED RBC # (test code = NRBC#) 0.00 K/mm3 0.0-0.1 N MANUAL DIFF REQUIRED (test code = MDIFF) NO BASIC METABOLIC [id number] 05:05:00* Test Item Value Reference Range Interpretation Comme nts SODIUM (test code = NA) 142 mmol/L 136-145 N POTASSIUM (test code = K) 3.9 mmol/L 3.5-5.1 N CHLORIDE (test code = CL) 112.0 mmol/L 98-107 H CARBON DIOXIDE (test code = CO2) mmol/L 21-32 ANION GAP (test code = GAP) 10-20 GLUCOSE (test code = GLU) mg/dL 74-106 BLOOD UREA NITROGEN (test co de = BUN) mg/dL 7-18 GLOMERULAR FILTRATION RATE ( test code = GFR) mL/min >=60 CREATININE (test code = CREAT) mg/dL 0.55-1.02 BUN/CREATININE RATIO (test c ode = BUN/CREA) 10-20 CALCIUM (test code = CA) mg/dL 8.5-10.1 BASIC METABOLIC [id number] 15:26:00* Test Item Value Reference Range Interpretation Comme nts SODIUM (test code = NA) 139 mmol/L 136-145 N POTASSIUM (test code = K) 3.6 mmol/L 3.5-5.1 N CHLORIDE (test code = CL) 106.0 mmol/L 98-107 N CARBON DIOXIDE (test code = CO2) 27.0 mmol/L 21-32 N ANION GAP (test code = GAP) 9.6 10-20 L GLUCOSE (test code = GLU) 130 mg/dL 74-106 H BLOOD UREA NITROGEN (test code = BUN) 4 mg/dL 7-18 L GLOMERULAR FILTRATION RATE (test code = GFR) > 60 mL/min >=60 Estimated GFR by using Modified MDRD formula.Chronic kidney disease is defined as either kidney damageor GFR <60 mL/min/1.73 m2 for >3 months. CREATININE (test code = CREAT) 0.50 mg/dL 0.55-1.02 L Note change in reference range due to change in reagent. BUN/CREATININE RATIO (test code = BUN/CREA) 8.1 10-20 L CALCIUM (test code = CA) 7.9 mg/dL 8.5-10.1 L GORGE [id number] NOTIFIED@---MOBILAB COMMENT---THYROID PROFILE [id number] 15:26:00* Test Item Value Reference Range Interpretation Comme nts T3 UPTAKE (test code = T3UP) 36.0 % 30.0-40.0 N T4 (THYROXINE) (test code = T4) 6.8 ug/dL 4.5-13.9 N T7 (FREE THYROXINE INDEX) (test code = T7) 2.44 FTI 1.3-5.1 N THYROID STIMULATING HORMONE (test code = TSH) 1.420 uIU/mL 0.36-3.74 N TSH REFERENCE RANGES: EUTHYROID: 0.35 - 4.3 mIU/mL HYPO : > 5.5 mIU/mL HYPER : < 0.35 mIU/mL GORGE [id number] NOTIFIED@---MOBILAB COMMENT---BASIC METABOLIC [id number] 15:12:00* Test Item Value Reference Range Interpretation Comme nts SODIUM (test code = NA) 139 mmol/L 136-145 N POTASSIUM (test code = K) 3.6 mmol/L 3.5-5.1 N CHLORIDE (test code = CL) 106.0 mmol/L 98-107 N CARBON DIOXIDE (test code = CO2) mmol/L 21-32 ANION GAP (test code = GAP) 10-20 GLUCOSE (test code = GLU) mg/dL 74-106 BLOOD UREA NITROGEN (test co de = BUN) mg/dL 7-18 GLOMERULAR FILTRATION RATE ( test code = GFR) mL/min >=60 CREATININE (test code = CREAT) mg/dL 0.55-1.02 BUN/CREATININE RATIO (test c ode = BUN/CREA) 10-20 CALCIUM (test code = CA) mg/dL 8.5-10.1 GORGE [id number] NOTIFIED@---MOBILAB COMMENT---THYROID PROFILE [id number] 15:12:00* Test Item Value Reference Range Interpretation Comme nts T3 UPTAKE (test code = T3UP) % 30.0-40.0 T4 (THYROXINE) (test code = T4) ug/dL 4.5-13.9 T7 (FREE THYROXINE INDEX) (t est code = T7) FTI 1.3-5.1 THYROID STIMULATING HORMONE (test code = TSH) uIU/mL 0.36-3.74 GORGE [id number] NOTIFIED@---MOBILAB COMMENT---CBC W/AUTO [id number] 15:08:00* Test Item Value Reference Range Interpretation Comme nts WHITE BLOOD CELL (test code = WBC) 13.0 K/mm3 4.5-12.5 H RED BLOOD CELL (test code = RBC) 3.09 mill/mm3 3.7-5.2 L HEMOGLOBIN (test code = HGB) 8.4 gram/dL 11.5-15.5 L RESULT VERIFIED BY REPEAT ANALYSIS HEMATOCRIT (test code = HCT) 26.8 % 36.0-46.0 L MEAN CELL VOLUME (test code = MCV) 86.7 fL 80-98 N MEAN CELL HGB (test code = MCH) 27.2 picogram 27.0-33.0 N MEAN CELL HGB CONCETRATION (test code = MCHC) 31.3 gram/dL 33.0-36.0 L RED CELL DISTRIBUTION WIDTH (test code = RDW) 15.3 % 11.6-16.2 N RED CELL DISTRIBUTION WIDTH SD (test code = RDW-SD) 48.6 fL 37.0-51.0 N PLATELET COUNT (test code = PLT) 250 K/mm3 150-450 MEAN PLATELET VOLUME (test code = MPV) 10.1 fL 6.7-11.0 N NEUTROPHIL % (test code = NT%) 74.0 % 39.0-69.0 H IMMATURE GRANULOCYTE % (test code = IG%) 0.6 % 0.0-5.0 N LYMPHOCYTE % (test code = LY%) 13.3 % 25.0-55.0 L MONOCYTE % (test code = MO%) 11.6 % 0.0-10.0 H EOSINOPHIL % (test code = EO%) 0.2 % 0.0-5.0 N BASOPHIL % (test code = BA%) 0.3 % 0.0-1.0 N NUCLEATED RBC % (test code = NRBC%) 0.0 % 0-0 N NEUTROPHIL # (test code = NT#) 9.59 K/mm3 1.8-7.7 H IMMATURE GRANULOCYTE # (test code = IG#) 0.08 x10 3/uL 0-0.03 H LYMPHOCYTE # (test code = LY#) 1.73 K/mm3 1.0-5.0 N MONOCYTE # (test code = MO#) 1.51 K/mm3 0-0.8 H EOSINOPHIL # (test code = EO#) 0.03 K/mm3 0.0-0.5 N BASOPHIL # (test code = BA#) 0.04 K/mm3 0.0-0.2 N NUCLEATED RBC # (test code = NRBC#) 0.00 K/mm3 0.0-0.1 N MANUAL DIFF REQUIRED (test code = MDIFF) NO RN [id number] NOTIFIED@---MOBILAB COMMENT---UR HCG [id number] 05:38:00* Test Item Value Reference Range Interpretation Comme nts UR HCG QUAL (test code = HCGQLU) NEGATIVE This HCGQL test is NOT applicable for MALE patients.Check with nurse about probable order error.If Tumor Marker Test needed, nurse should order test "HCGTU"(Test #[id number]) - XR CHEST 1 [id number] 15:16:00FAX: Paulo Chew [phone] [place]: [place] St: REG Name: MARISOL LE [facility] FSED : 1985 Age/S: 33/F [address] [facility] Unit #: [id number] Loc: [facility] [address] Phys: Paulo Chew MD [place], [place] [address] Acct: [id number] Dis Date: Status: REG ER PHONE #: Exam Date: 04/08/2019 9792 FAX #: Reason: CODE SEPSIS EXAMS: CPT CODE: [id number] XR CHEST 1 V 58076 REASON FOR EXAM: CODE SEPSIS EXAM ORDER DATE: 04/08/2019 1:28 PM Ordering: Paulo Chew MD Attending:Paulo Chew MD Location:[facility] PROCEDURE: - XR CHEST 1 V COMPARISON: FINDINGS: Portable AP frontal view of the chest obtained at 2:32 PM shows clear lungs without evidence of consolidation. There is no evidence of effusion. The heart size is within normal limits. Pulmonary vasculatures are unremarkable. IMPRESSION: No active disease. at 6834 Reported and signed by: Jerrell Riggs M.D. CC: Paulo Chew MD Technologist: Anuj Poole Trnscrd Date/Time/By: 04/08/2019 (8085) : By: Homar Orig Print D/T: S: 04/08/2019 (5 410) PAGE 1 Signed ReportBASIC METABOLIC [id number] 14:16:00* Test Item Value Reference Range Interpretation Comme nts SODIUM (test code = NA) 133 mmol/L 128-145 N POTASSIUM (test code = K) 3.4 mmol/L 3.5-5.1 L CHLORIDE (test code = CL) 94.0 mmol/L 98-107 L CARBON DIOXIDE (test code = CO2) 24.1 mmol/L 22-29 N ANION GAP (test code = GAP) 18 mmol/L 10-20 N GLUCOSE (test code = GLU) 108 mg/dL 70-110 N BLOOD UREA NITROGEN (test code = BUN) 7 mg/dL 7-22 N GLOMERULAR FILTRATION RATE (test code = GFR) > 60 mL/min >=60 Estimated GFR by using Modified MDRD formula.Chronic kidney disease is defined as either kidney damageor GFR <60 mL/min/1.73 m2 for >3 months. CREATININE (test code = CREAT) 0.73 mg/dL 0.55-1.3 N BUN/CREATININE RATIO (test code = BUN/CREA) 9.6 10-20 L CALCIUM (test code = CA) 9.1 mg/dL 8.0-10.5 N HEPATIC FUNCTION [id number] 14:16:00* Test Item Value Reference Range Interpretation Comme nts TOTAL PROTEIN (test code = PROT) 7.7 gram/dL 6.1-7.8 N ALBUMIN (test code = ALB) 3.4 g/dL 3.3-4.4 N GLOBULIN (test code = GLOB) 4.3 G/DL 1-10 N ALBUMIN/GLOBULIN RATIO (test code = A/G) 0.8 0.75-1.50 N BILIRUBIN TOTAL (test code = BILT) 0.60 mg/dL 0.2-1.2 N BILIRUBIN DIRECT (test code = BILD) 0.20 mg/dL 0.0-0.30 N SGOT/AST (test code = AST) 10 U/L 10-39 N SGPT/ALT (test code = ALT) 14 U/L 10-69 N ALKALINE PHOSPHATASE TOTAL ( test code = ALKP) 78 U/L 50-139 N [id number] 14:16:00* Test Item Value Reference Range Interpretation Comme nts TROPONIN-I (test code = TROPI) <0.015 ng/mL 0.00-0.056 N LACTIC [id number] 14:11:00* Test Item Value Reference Range Interpretation Comme nts LACTIC ACID (test code = LACT) 1.4 MMOL/L 0.4-1.9 N URINALYSIS [id number] 14:02:00* Test Item Value Reference Range Interpretation Comme nts UA COLOR (test code = COLU) YELLOW YELLOW UA APPEARANCE (test code = APPU) HAZY CLEAR A UA GLUCOSE DIPSTICK (test code = DGLUU) NEGATIVE mg/dL NEGATIVE UA BILIRUBIN DIPSTICK (test code = BILU) NEGATIVE NEGATIVE UA KETONE DIPSTICK (test code = KETU) 1+ mg/dL NEGATIVE UA SPECIFIC GRAVITY (test code = SGU) 1.020 1.001-1.035 UA BLOOD DIPSTICK (test code = KATHRYN) 3+ (Large) NEGATIVE A UA PH DIPSTICK (test code = ASHLEE) 6.0 5.0-8.0 UA PROTEIN DIPSTICK (test code = PROU) 100 (2+) mg/dL Neg-15 UA UROBILINIOGEN DIPSTICK (test code = URO) 1 mg/dL (1+) mg/dL 0.0-0.2 UA NITRITE DIPSTICK (test code = ANTHONY) POSITIVE NEGATIVE UA LEUKOCYTE ESTERASE DIPSTICK (test code = LEUU) 1+ uL NEGATIVE A UA MICROSCOPIC NEEDED? (test code = UAMICRO) YES UA WBC (test code = WBCU) >100 per HPF 0-5 A UA RBC (test code = RBCU) 5-10 per HPF 0-5 A UA EPITHELIAL CELLS (test code = EPIU) Few (2-5/hpf) per HPF Few UA BACTERIA (test code = BACU) LOADED per HPF NONE A Urine Source? Clean CatchBASIC METABOLIC [id number] 14:02:00* Test Item Value Reference Range Interpretation Comme nts SODIUM (test code = NA) 133 mmol/L 128-145 N POTASSIUM (test code = K) 3.4 mmol/L 3.5-5.1 L CHLORIDE (test code = CL) 94.0 mmol/L 98-107 L CARBON DIOXIDE (test code = CO2) 24.1 mmol/L 22-29 N ANION GAP (test code = GAP) 18 mmol/L 10-20 N GLUCOSE (test code = GLU) 108 mg/dL 70-110 N BLOOD UREA NITROGEN (test code = BUN) 7 mg/dL 7-22 N GLOMERULAR FILTRATION RATE (test code = GFR) > 60 mL/min >=60 Estimated GFR by using Modified MDRD formula.Chronic kidney disease is defined as either kidney damageor GFR <60 mL/min/1.73 m2 for >3 months. CREATININE (test code = CREAT) 0.73 mg/dL 0.55-1.3 N BUN/CREATININE RATIO (test code = BUN/CREA) 9.6 10-20 L CALCIUM (test code = CA) 9.1 mg/dL 8.0-10.5 N HEPATIC FUNCTION [id number] 14:02:00* Test Item Value Reference Range Interpretation Comme nts TOTAL PROTEIN (test code = PROT) gram/dL 6.4-8.2 ALBUMIN (test code = ALB) g/dL 3.4-5.0 GLOBULIN (test code = GLOB) G/DL 1-10 ALBUMIN/GLOBULIN RATIO (test code = A/G) 0.75-1.50 BILIRUBIN TOTAL (test code = BILT) mg/dL 0.0-1.0 BILIRUBIN DIRECT (test code = BILD) mg/dL 0.0-0.20 SGOT/AST (test code = AST) IUnit/L 15-37 SGPT/ALT (test code = ALT) IUnit/L 12-78 ALKALINE PHOSPHATASE TOTAL ( test code = ALKP) IUnit/L 45-117 [id number] 14:02:00* Test Item Value Reference Range Interpretation Comme nts TROPONIN-I (test code = TROPI) ng/mL 0-0.045 URINALYSIS [id number] 13:58:00* Test Item Value Reference Range Interpretation Comme nts UA COLOR (test code = COLU) YELLOW YELLOW UA APPEARANCE (test code = APPU) HAZY CLEAR A UA GLUCOSE DIPSTICK (test code = DGLUU) NEGATIVE mg/dL NEGATIVE UA BILIRUBIN DIPSTICK (test code = BILU) NEGATIVE NEGATIVE UA KETONE DIPSTICK (test code = KETU) 1+ mg/dL NEGATIVE UA SPECIFIC GRAVITY (test code = SGU) 1.020 1.001-1.035 UA BLOOD DIPSTICK (test code = KATHRYN) 3+ (Large) NEGATIVE A UA PH DIPSTICK (test code = ASHLEE) 6.0 5.0-8.0 UA PROTEIN DIPSTICK (test code = PROU) 100 (2+) mg/dL Neg-15 UA UROBILINIOGEN DIPSTICK (test code = URO) 1 mg/dL (1+) mg/dL 0.0-0.2 UA NITRITE DIPSTICK (test code = ANTHONY) POSITIVE NEGATIVE UA LEUKOCYTE ESTERASE DIPSTICK (test code = LEUU) 1+ uL NEGATIVE A UA MICROSCOPIC NEEDED? (test code = UAMICRO) UA WBC (test code = WBCU) per HPF 0-5 UA RBC (test code = RBCU) per HPF 0-5 UA EPITHELIAL CELLS (test code = EPIU) per HPF Few UA BACTERIA (test code = BACU) per HPF NONE Urine Source? Clean CatchCBC W/AUTO [id number] 13:52:00* Test Item Value Reference Range Interpretation Comme nts WHITE BLOOD CELL (test code = WBC) 15.5 K/mm3 4.5-12.5 H RED BLOOD CELL (test code = RBC) 4.31 mill/mm3 3.7-5.2 N HEMOGLOBIN (test code = HGB) 11.7 gram/dL 11.5-15.5 N HEMATOCRIT (test code = HCT) 36.3 % 36.0-46.0 N MEAN CELL VOLUME (test code = MCV) 84.2 fL 80-98 N MEAN CELL HGB (test code = MCH) 27.1 picogram 27.0-33.0 N MEAN CELL HGB CONCETRATION (test code = MCHC) 32.2 gram/dL 33.0-36.0 L RED CELL DISTRIBUTION WIDTH (test code = RDW) 14.9 % 11.6-16.2 N RED CELL DISTRIBUTION WIDTH SD (test code = RDW-SD) 46.5 fL 37.0-51.0 N PLATELET COUNT (test code = PLT) 303 K/mm3 150-450 N MEAN PLATELET VOLUME (test c ode = MPV) 10.1 fL 6.7-11.0 N NEUTROPHIL % (test code = NT%) 75.5 [...] K/mm3 0.0-0.2 N MANUAL DIFF REQUIRED (test c ode = MDIFF) NO Notes Date/Time Note Provider Source 2022-12-05 09:50:32 JpOj5PDwzf1DoCkA4NbhDbVQbMAx11hzUBIeAZ2 lqin9d76N9n2TEHvyoBZu94Wx7336-24-39Q30: 50:32 3rd attempt. No answer. Letter sent.Dulce Naranjo RN 12/05/22 9:50 AM 91966-0Wfgxjnfbr encounter VgysXU0171-04-92N18:51:31Telephone encounter NoteTXT1.2.840.271819.1.13.104.2.7.2.72 7879|[id number] for patient tdlh18992-4CpjfYQ912501143Xbqpafei Hernandez RNUTMBUTMB - [address] JqdpVsfcjtafuLvszeyrbrDRMI2216780732PWT EKQXXIAIQCKHDBGUGWQ6674-04-56M59:51:311 .2.840.482284.1.72.3.15|1.2.840.569665. 1.13.104.2.7.2.727879_[id number] Dulce Naranjo RN [facility] 2022-12-04 14:09:39 PFbDuLIBnR9dq4jh0b3WvuFcO38xpWUSqYnzOVt mUtkWAayl+NPrTkhscGpI1N2/9706-76-96Y94: 09:39 2nd attempt to call patient, no answer, vm full. 92334-1Nlehsdyui encounter QxjfCB4523-18-04F50:09:55Telephone encounter NoteTXT1.2.840.919306.1.13.104.2.7.2.72 7879|[id number] for patient plwe65746-8BiupYA713860829Rnxiyfhs Garcia [address] OhngFtbhaaiguDhtzkxsgzODFM8448153371DWB YNITYCQZXNEYQLJXRXU4936-80-85U92:09:551 .2.840.709619.1.72.3.15|1.2.840.766092. 1.13.104.2.7.2.727879_[id number] Adela Valenzuela PHARMACEUTICAL DEVELOPMENT TECHNICIAN [facility] 2022-12-04 09:06:02 HLNZTKgMOR5ynSXhFHuzZdf4Gq25s1DTdADCvCb SjgXvqproOT7H7iId/ogIMBmY7087-52-32Z65: 06:02 Attempted to call patient, no answer, vm full. 58192-2Ynjsmgujf encounter QntpSB7609-07-32M26:10:10Telephone encounter NoteTXT1.2.840.315216.1.13.104.2.7.2.72 7879|[id number] for patient brjs98309-6FmopZS025259206Edfevisl Garcia [id number] YCPMVRJRBIDFNULACVQ9396-60-89F72:10:101 .2.840.643838.1.72.3.15|1.2.840.930188. 1.13.104.2.7.2.727879_[id number] Adela Valenzuela [facility] 2022-12-03 16:28:37 OgGV2KgZxQimpDmKpiwMxULASTCup80Y3QP+4BA QcDqM3ceDwckz3nQaVvHOQxbP6594-46-29V76: 28:37 Please notify the patient her labs are indicative of BV, meds have been sent to her pharmacy on file. Please have her complete the entire course as prescribed.Please notify the patient that yeast was identified on her pap. Meds have been sent to her pharmacy on file, please advise the patient to complete the meds as prescribed, and practice good perineal hygiene. MICHELLE Jarvis 12/03/2022 4:28 PM 73639-9Htbusewzr encounter BzdrPE1468-98-78C48:29:38Telephone encounter NoteTXT1.2.840.656275.1.13.104.2.7.2.72 7879|[id number] for patient iigh14184-0QbjaZJPFIRMPCW[id number] RTTKSCRZUECWFLJSGJC7683-88-56I51:29:381 .2.840.191323.1.72.3.15|1.2.840.530045. 1.13.104.2.7.2.727879_[id number] [facility] 2019-05-10 02:13:00 KOoulmlbkuh00870322sOhGmwN32I+/rrv9zoah xizpfA/FQoM7BhFIYWvrcdCgVH/6ax313nSCN4u FzEWO0045-78-84X22:13:00 [facility] PROVIDER REPORTREPORT#:[id number] REPORT STATUS: SignedDATE:05/10/19 TIME: 021 PATIENT: MARISOL LE UNIT #: [id number]#: [id number] ROOM/BED:AGE: 33 SEX: F PCP PHYS: No Primary or Family PhysicianSERVICE AUTHOR: Jorge L Jaramillo MD * ALL edits or amendments must be made on the electronic/computer document * HPI-Ear Pain/Problem/FB GeneralInitial Greet Date/Time 05/10/19 0040 PresentationChief Complaint Ear problem ROnset Occurred TodaySymptom Duration Since onsetProgression since Onset UnchangedContext of Onset recent uriLocation Inner earQuality Aching, Dull, Fullness, PainfulSeverity: Onset ModerateSeverity: Current ModerateAssociated withReports: Rhinorrhea, Sore throat, URI symptoms. Denies: Dizziness, Fever, Headache, Nausea, Neck pain, Swimming, Trauma. ContextImmunization Status General All up to date Review of Systems ROS StatementsAll systems rev neg except as marked. Focused Review of SystemsEars/Nose/ThroatReports: Ear drainage R, Earache R. Past Medical History - AdultStated Complaint EARAllergiesCoded Allergies:No Known Allergies (04/08/19) Home MedicationsActive ScriptsCEPHALEXIN (KEFLEX) 500 MG PO Q12H CEPHALEXIN (KEFLEX) 500 MG PO Q12H #14 CAPS Prov: 04/10/19 Review of Nursing Notes Triage notes reviewed, Rapid assess notes revPt reports no significant: Past medical history, Past surgical historySmoking status for patients 13 years old or older: Never Smoker Physical Exam Vital SignsVital SignsFirst Documented: Result Date Time Pulse Ox 98 05/10 0204 B/P 111/80 05/10 0204 B/P Mean 90 05/10 0204 O2 Delivery Room air 05/10 203 Temp 36.7 05/10 0204 Pulse 110 05/10 0204 Resp 22 05/104 Last Documented: Result Date Time Pulse Ox 98 05/10 0204 B/P 111/80 05/10 0204 B/P Mean 90 05/104 O2 Delivery Room air 05/104 Temp 36.7 05/10 0204 Pulse 110 05/10 0204 Resp 22 05/104 Review of Vital Signs Reviewed Basic Physical ExamBasic PE HEAD: Atraumatic/NC, EYES: PERRL, conj clear, NECK: Supple, RESP: No resp distress, CV: Reg rate rhythm, ABD: Soft/non-tender, EXT: No gross abnormality, SKIN: No rashes, warm/dry, NEURO: alert oriented, NEURO: gross movement NL, PSYCH: NL thought content Focused PEGeneral/Const General/Const Awake, Alert, Well developed, Well hydrated, Well nourished, Cooperative, Not toxic appearingEars/Nose/Throat Right Ear/Mastoid Tympanic membrane red, Tympanic membrane bulging. Negative: External canal red, External fish bin tender, Ext canal foreign body. MS Neck Neck Supple, No meningismus, Full range of motionNeurologic Neurologic Oriented X3, Speech NL, No motor deficits, No sensory deficits Re-Evaluation MDM Re-Evaluation/ProgressRe-Evaluation/Pro rylan Text/Dict Notedc homeotitis mediano systemic symptomsabx and pain medsrefer pt to pcp Time of Re-Eval 0242 Re-Eval Status Improved ED CourseMedication(s) OrderedMedication(s) Ordered:Cardiovascular Drugs Sig/Stephan Start time Last Medication Dose Route Stop Time Status Admin Lidocaine HCl 0 .STK-MED ONE 05/10 0224 DC 05/10 MM 0224 Central Nervous System Agents Sig/Stephan Start time Last Medication Dose Route Stop Time Status Admin Acetaminophen 1,000 MG X1ED STA 05/10 0159 DC 05/10 PO 05/10 0200 0209 Ibuprofen 600 MG X1ED STA 05/10 0159 DC 05/10 PO 05/10 0200 0210 Patient Discharge Departure Vital Signs/ConditionVital SignsFirst Documented: Result Date Time Pulse Ox 98 05/10 0204 B/P 111/80 05/104 B/P Mean 90 05/104 O2 Delivery Room air 05/10 203 Temp 36.7 05/10 0204 Pulse 110 05/10 0204 Resp 22 05/104 Last Documented: Result Date Time Pulse Ox 98 05/104 B/P 111/80 05/10 0204 B/P Mean 90 05/10 0204 O2 Delivery Room air 05/104 Temp 36.7 05/10 0204 Pulse 110 05/10 0204 Resp 22 05/104 All vital signs available at the time of this entry have been reviewed. Condition Stable Clinical ImpressionClinical ImpressionPrimary Impression: Otitis media Disposition DecisionDischarge )( Discharged to Home Yes )( Time 0243 )( Date 05/10/19 Discharge/Care PlanCounseled Regarding Diagnosis, Medication changes, Prescriptions, Need for follow-up, When to return to ED at 0246RPT #:[id number] OF REPORTEDEmergency department xbtkvf6985-62-16P95:13:00V.[id number] -0053AVAvailable for patient oinrWXYVPXDIIXUKQU8656-54-21S42:46:24 [facility] 2019-04-10 10:40:00 RQvmltxjbwc99957884waNRjoCvfCHU4T9BrbqA RrLP1KpaiHuWgolK/kh+a+xmUAZF2Rd2RhzTGOq /fS9866-99-04Q80:40:00 [facility] ([facility])Discharge SummaryREPORT#:[id number] REPORT STATUS: SignedDATE:04/10/19 TIME: 1040 PATIENT: MARISOL LE UNIT #: [id number]#: [id number] [address] [birth year] AGE: 33 SEX: F ATTEND: El Ford [facility] AUTHOR: Pema Koroma CASE MANAGEMENT ASSISTANT * ALL edits or amendments must be made on the electronic/computer document * PCP PCPDischarge to: home General InformationProblem List/A P: 1. Sepsis 2. Pyelonephritis Date of admission:Observation Start Date: Date of admission: 04/08/19 Date of discharge: 04/10/19Discharge diagnosis:1. Sepsis secondary to acute bilateral pyleonephritis Hospital course:Patient is a 33-year-old female came into the ED with fever and bilateral flank pain was diagnosed with bilateral pyelonephritis. Patient started on empiric antibiotics PRN pain management cultures grew Escherichia coli. DC patient on Keflex will DC to follow-up with primary care as an outpatient. Patient was understanding of discharge plan.Pt. condition on discharge: stable Med Rec PCPPCP:PCP: No Primary or Family Physician ObjectiveVS/I OLast Documented: Result Date Time Pulse Ox 100 04/10 816 B/P 113/78 04/10 816 B/P Mean 89.8 04/10 816 O2 Delivery Room air 04/10 816 Temp 97.9 04/10 816 Pulse 87 04/10 816 Resp 18 04/10 816 Patient Weight Weight (lb): Weight (oz): Weight (kg): 52.727 General appearance: alert, awake, orientedCardiovascular: normal capillary refill, regular rate rhythmRespiratory: clear to auscultation, no distress, no tendernessGI: soft, non-tender, no guarding, no rebound, no distention, no mass/organomegaly, no pulsatile mass, no hernia, normal abdominal aortaMusculoskeletal: full range of motion, normal inspectionNeuro/SOCK IRONER: alert, oriented X 3 ResultsFindings/Data:Laboratory Tests: 04/10 04/09 0331 1412 Chemistry Sodium (136 - 145 mmol/L) 142 139 Potassium (3.5 - 5.1 mmol/L) 3.9 3.6 Chloride (98 - 107 mmol/L) 112.0 H 106.0 Carbon Dioxide (21 - 32 mmol/L) 25.0 27.0 Anion Gap (10 - 20) 8.9 L 9.6 L BUN (7 - 18 mg/dL) 3 L 4 L Creatinine (0.55 - 1.02 mg/dL) 0.30 L 0.50 L Glomerular Filtr Rate (>=60 mL/min) > 60 > 60 BUN/Creatinine Ratio (10 - 20) 8.7 L 8.1 L Glucose (74 - 106 mg/dL) 92 130 H Calcium (8.5 - 10.1 mg/dL) 7.9 L 7.9 L TSH (0.36 - 3.74 uIU/mL) 1.420 Free T4 Index (1.3 - 5.1 FTI) 2.44 Thyroxine (T4) (4.5 - 13.9 ug/dL) 6.8 T3 Uptake (30.0 - 40.0 %) 36.0 Hematology WBC (4.5 - 12.5 K/mm3) 8.3 13.0 H RBC (3.7 - 5.2 mill/mm3) 3.40 L 3.09 L Hgb (11.5 - 15.5 gram/dL) 9.1 L 8.4 L Hct (36.0 - 46.0 %) 29.1 L 26.8 L MCV (80 - 98 fL) 85.6 86.7 MCH (27.0 - 33.0 picogram) 26.8 L 27.2 MCHC (33.0 - 36.0 gram/dL) 31.3 L 31.3 L RDW (11.6 - 16.2 %) 15.3 15.3 RDW Std Deviation (37.0 - 51.0 fL) 48.3 48.6 Plt Count (150 - 450 K/mm3) 300 250 MPV (6.7 - 11.0 fL) 11.0 10.1 Neut % (Auto) (39.0 - 69.0 %) 61.6 74.0 H Lymph % (Auto) (25.0 - 55.0 %) 23.5 L 13.3 L Payette % (Auto) (0.0 - 10.0 %) 13.6 H 11.6 H Eos % (Auto) (0.0 - 5.0 %) 0.5 0.2 Baso % (Auto) (0.0 - 1.0 %) 0.4 0.3 Neut # (Auto) (1.8 - 7.7 K/mm3) 5.11 9.59 H Lymph # (Auto) (1.0 - 5.0 K/mm3) 1.95 1.73 Payette # (Auto) (0 - 0.8 K/mm3) 1.13 H 1.51 H Eos # (Auto) (0.0 - 0.5 K/mm3) 0.04 0.03 Baso # (Auto) (0.0 - 0.2 K/mm3) 0.03 0.04 Add Manual Diff NO NO Nucleated RBC % (0 - 0 %) 0.0 0.0 Nucleated RBCs # (Man) (0.0 - 0.1 K/mm3) 0.00 0.00 Discharge InstructionsDiet: regularOral fluid restriction: NoActivity: as toleratedDischarge management: greater than 30 minsTime spent: Time spent with patient (minutes): 35 Follow-up AppointmentsPCP: PCP: No Primary or Family Physician Follow up timeframe: In 1-2 weeksAttending Physician: Attending Physician: El Ford MD Quality MedicationsCurrent medication review:I attest that the foregoing medication list in the medical record is true, accurate, and complete to the best of my knowledge. BMI Screening > 25 or < 18.5BMI status/follow-up: nml BMI,no drug and alcohol counselor needed Tobacco Use/CounselingTobacco use/counseling: cessation drug and alcohol counselor <3 min HTN Screening/Follow-upB/P assess/follow-up: normal B/P, no f/u req at 1043 RPT #:[id number] OF REPORTDSDischarge outqwqh7066-89-93Q12:40:00V.[id number] 3-0241AVAvailable for patient kuwtMNDXEVEAWEWPQQ7851-27-88K73:43:41 [facility] 2019-04-10 10:40:00 MNfmnqxlrgt59216469oCuassMu7/e9VLlJvJDr +JW2lxO1R437BbdheXgTC/fZcykE2gTYYI7KDb8 AeYdM4234-10-08X29:40:00 [facility] ([facility])Discharge SummaryREPORT#:[id number] REPORT STATUS: SignedDATE:04/10/19 TIME: 1040 PATIENT: MARISOL LE UNIT #: [id number]#: [id number] [address] [birth year] AGE: 33 SEX: F ATTEND: [place] [facility] AUTHOR: Pema Koroma CASE MANAGEMENT ASSISTANT * ALL edits or amendments must be made on the electronic/computer document * PCP PCPDischarge to: home General InformationProblem List/A P: 1. Sepsis 2. Pyelonephritis Date of admission:Observation Start Date: Date of admission: 04/08/19 Date of discharge: 04/10/19Discharge diagnosis:1. Sepsis secondary to acute bilateral pyleonephritis Hospital course:Patient is a 33-year-old female came into the ED with fever and bilateral flank pain was diagnosed with bilateral pyelonephritis. Patient started on empiric antibiotics PRN pain management cultures grew Escherichia coli. DC patient on Keflex will DC to follow-up with primary care as an outpatient. Patient was understanding of discharge plan.Pt. condition on discharge: stable Med Rec PCPPCP:PCP: No Primary or Family Physician ObjectiveVS/I OLast Documented: Result Date Time Pulse Ox 100 04/10 816 B/P 113/78 04/10 816 B/P Mean 89.8 04/10 816 O2 Delivery Room air 04/10 816 Temp 97.9 04/10 816 Pulse 87 04/10 816 Resp 18 04/10 816 Patient Weight Weight (lb): Weight (oz): Weight (kg): 52.727 General appearance: alert, awake, orientedCardiovascular: normal capillary refill, regular rate rhythmRespiratory: clear to auscultation, no distress, no tendernessGI: soft, non-tender, no guarding, no rebound, no distention, no mass/organomegaly, no pulsatile mass, no hernia, normal abdominal aortaMusculoskeletal: full range of motion, normal inspectionNeuro/SOCK IRONER: alert, oriented X 3 ResultsFindings/Data:Laboratory Tests: 04/10 04/09 0331 1412 Chemistry Sodium (136 - 145 mmol/L) 142 139 Potassium (3.5 - 5.1 mmol/L) 3.9 3.6 Chloride (98 - 107 mmol/L) 112.0 H 106.0 Carbon Dioxide (21 - 32 mmol/L) 25.0 27.0 Anion Gap (10 - 20) 8.9 L 9.6 L BUN (7 - 18 mg/dL) 3 L 4 L Creatinine (0.55 - 1.02 mg/dL) 0.30 L 0.50 L Glomerular Filtr Rate (>=60 mL/min) > 60 > 60 BUN/Creatinine Ratio (10 - 20) 8.7 L 8.1 L Glucose (74 - 106 mg/dL) 92 130 H Calcium (8.5 - 10.1 mg/dL) 7.9 L 7.9 L TSH (0.36 - 3.74 uIU/mL) 1.420 Free T4 Index (1.3 - 5.1 FTI) 2.44 Thyroxine (T4) (4.5 - 13.9 ug/dL) 6.8 T3 Uptake (30.0 - 40.0 %) 36.0 Hematology WBC (4.5 - 12.5 K/mm3) 8.3 13.0 H RBC (3.7 - 5.2 mill/mm3) 3.40 L 3.09 L Hgb (11.5 - 15.5 gram/dL) 9.1 L 8.4 L Hct (36.0 - 46.0 %) 29.1 L 26.8 L MCV (80 - 98 fL) 85.6 86.7 MCH (27.0 - 33.0 picogram) 26.8 L 27.2 MCHC (33.0 - 36.0 gram/dL) 31.3 L 31.3 L RDW (11.6 - 16.2 %) 15.3 15.3 RDW Std Deviation (37.0 - 51.0 fL) 48.3 48.6 Plt Count (150 - 450 K/mm3) 300 250 MPV (6.7 - 11.0 fL) 11.0 10.1 Neut % (Auto) (39.0 - 69.0 %) 61.6 74.0 H Lymph % (Auto) (25.0 - 55.0 %) 23.5 L 13.3 L Payette % (Auto) (0.0 - 10.0 %) 13.6 H 11.6 H Eos % (Auto) (0.0 - 5.0 %) 0.5 0.2 Baso % (Auto) (0.0 - 1.0 %) 0.4 0.3 Neut # (Auto) (1.8 - 7.7 K/mm3) 5.11 9.59 H Lymph # (Auto) (1.0 - 5.0 K/mm3) 1.95 1.73 Payette # (Auto) (0 - 0.8 K/mm3) 1.13 H 1.51 H Eos # (Auto) (0.0 - 0.5 K/mm3) 0.04 0.03 Baso # (Auto) (0.0 - 0.2 K/mm3) 0.03 0.04 Add Manual Diff NO NO Nucleated RBC % (0 - 0 %) 0.0 0.0 Nucleated RBCs # (Man) (0.0 - 0.1 K/mm3) 0.00 0.00 Discharge InstructionsDiet: regularOral fluid restriction: NoActivity: as toleratedDischarge management: greater than 30 minsTime spent: Time spent with patient (minutes): 35 Follow-up AppointmentsPCP: PCP: No Primary or Family Physician Follow up timeframe: In 1-2 weeksAttending Physician: Attending Physician: [place] MD Quality MedicationsCurrent medication review:I attest that the foregoing medication list in the medical record is true, accurate, and complete to the best of my knowledge. BMI Screening > 25 or < 18.5BMI status/follow-up: nml BMI,no drug and alcohol counselor needed Tobacco Use/CounselingTobacco use/counseling: cessation drug and alcohol counselor <3 min HTN Screening/Follow-upB/P assess/follow-up: normal B/P, no f/u req at 1043 at 1236 RPT #:[id number] OF REPORTDSDischarge kwlluem1509-71-64A66:40:00V.[id number] [id number] for patient jirrFGAXCZMGLCEDBW8518-02-19X20:36:19 [facility] 2019-04-09 13:08:00 [id number] ld76wS/QlMpPxep6ZcdbMRk9osPKrhZhL+X/d0k F8jlT8894-88-33N97:08:00 [facility] ([facility])Hospitalist Progress NoteREPORT#:[id number] REPORT STATUS: SignedDATE:04/09/19 TIME: 1308 PATIENT: MARISOL LE UNIT #: [id number]#: [id number] [address] [birth year] AGE: 33 SEX: F ATTEND: [place] [facility] AUTHOR: Belen Mckenzie NP * ALL edits or amendments must be made on the electronic/computer document * SubjectiveChief Complaint:still c/o flank painPatient reports:Yes: complaints (flank pain). Nursing reports:No: complaints. Review of SystemsCardiovascular:Denies: chest pain, palpitations. :Reports: dysuria, flank pain. Denies: frequency, hematuria, urgency, urinary retention. All systems rev neg: except as marked Objective GeneralVS/I O:Vital Signs: Date Time Temp Pulse Resp B/P B/P Pulse O2 O2 Flow FiO2 Mean Ox Delivery Rate 04/09 1134 36.6 87 18 97/66 76.4 100 Room air 04/09 0723 37.3 115 18 93/60 70.7 98 Room air 04/09 0614 38.0 106 17 92/59 69.8 96 04/09 0341 37.7 98 20 93/57 69.0 97 Room air 04/09 0233 37.7 102 21 92/59 70.2 99 Room air 04/09 0105 38.0 110 18 101/64 76.0 97 04/08 2335 39.1 116 20 95/61 72.4 97 Room air 04/08 2016 38.3 123 19 92/56 68.2 98 04/08 1740 114 18 128/77 94 98 Room air 04/08 1643 37.3 102 16 96/67 76 99 Room air 04/08 1500 122 18 104/72 82 99 Room air 04/08 1327 39.5 140 18 110/75 86 99 Room air 24 hour I O ending at 0700: 04/09 0700 04/08 1900 Intake Total 1100.00 Output Total Balance 1100.00 Intake, IV 1100.00 Patient 52.727 kg Weight Weight Stated/Reported Measurement Method Patient Weight Weight (lb): Weight (oz): Weight (kg): 52.727 Physical ExamGeneral appearance: alert, awake, orientedHead/Eyes: PERRLAENT: moist mucosal membranesNeck: full range of motionCardiovascular: normal capillary refill, normal heart sounds, regular rate rhythmRespiratory: aerating well, clear to auscultation, symmetric expansion, no distressAbdomen: non-tender, normal bowel sounds, soft, no distentionGenitourinary: flank pain, Bilateral CVA tenderness.Extremities: moves allMusculoskeletal: normal inspection, Bilateral CVA tenderness.Neuro/SOCK IRONER: alert, oriented X 3, CNII-XII intactPsychiatry: normal affect, normal judgment/insight, normal mood ResultsFindings/Data:Laboratory Tests 04/08 04/08 1342 1342 Chemistry Sodium (128 - 145 mmol/L) 133 Potassium (3.5 - 5.1 mmol/L) 3.4 L Chloride (98 - 107 mmol/L) 94.0 L Carbon Dioxide (22 - 29 mmol/L) 24.1 Anion Gap (10 - 20 mmol/L) 18 BUN (7 - 22 mg/dL) 7 Creatinine (0.55 - 1.3 mg/dL) 0.73 Glomerular Filtr Rate (>=60 mL/min) > 60 BUN/Creatinine Ratio (10 - 20) 9.6 L Glucose (70 - 110 mg/dL) 108 Lactic Acid (0.4 - 1.9 MMOL/L) 1.4 Calcium (8.0 - 10.5 mg/dL) 9.1 Total Bilirubin (0.2 - 1.2 mg/dL) 0.60 Direct Bilirubin (0.0 - 0.30 mg/dL) 0.20 AST (10 - 39 U/L) 10 ALT (10 - 69 U/L) 14 Total Alk Phosphatase (50 - 139 U/L) 78 Troponin I (0.00 - 0.056 ng/mL) <0.015 Total Protein (6.1 - 7.8 gram/dL) 7.7 Albumin (3.3 - 4.4 g/dL) 3.4 Globulin (1 - 10 G/DL) 4.3 Albumin/Globulin Ratio (0.75 - 1.50) 0.8 Laboratory Tests 04/08 1342 Hematology WBC (4.5 - 12.5 K/mm3) 15.5 H RBC (3.7 - 5.2 mill/mm3) 4.31 Hgb (11.5 - 15.5 gram/dL) 11.7 Hct (36.0 - 46.0 %) 36.3 MCV (80 - 98 fL) 84.2 MCH (27.0 - 33.0 picogram) 27.1 MCHC (33.0 - 36.0 gram/dL) 32.2 L RDW (11.6 - 16.2 %) 14.9 RDW Std Deviation (37.0 - 51.0 fL) 46.5 Plt Count (150 - 450 K/mm3) 303 MPV (6.7 - 11.0 fL) 10.1 Neut % (Auto) (39.0 - 69.0 %) 75.5 H Lymph % (Auto) (25.0 - 55.0 %) 8.9 L [place] % (Auto) (0.0 - 10.0 %) 15.0 H Eos % (Auto) (0.0 - 5.0 %) 0.0 Baso % (Auto) (0.0 - 1.0 %) 0.3 Neut # (Auto) (1.8 - 7.7 K/mm3) 11.68 H Lymph # (Auto) (1.0 - 5.0 K/mm3) 1.38 [place] # (Auto) (0 - 0.8 K/mm3) 2.32 H Eos # (Auto) (0.0 - 0.5 K/mm3) 0.00 Baso # (Auto) (0.0 - 0.2 K/mm3) 0.04 Add Manual Diff NO Laboratory Tests 04/09 04/08 8555 1342 Urines Urine Color (YELLOW) YELLOW Urine Appearance (CLEAR) HAZY H Urine pH (5.0 - 8.0) 6.0 Ur Specific [place] (1.001 - 1.035) 1.020 Urine Protein (Neg - 15 mg/dL) 100 (2+) Urine Glucose (UA) (NEGATIVE mg/dL) NEGATIVE Urine Ketones (NEGATIVE mg/dL) 1+ Urine Blood (NEGATIVE) 3+ (Large) H Urine Nitrite (NEGATIVE) POSITIVE Urine Bilirubin (NEGATIVE) NEGATIVE Urine Urobilinogen (0.0 - 0.2 mg/dL) 1 mg/dL (1+) Ur Leukocyte Esterase (NEGATIVE uL) 1+ H Urine RBC (0 - 5 per HPF) 5-10 H Urine WBC (0 - 5 per HPF) >100 H Ur Epithelial Cells (Few per HPF) Few (2-5/hpf) Urine Bacteria (NONE per HPF) LOADED H Urine HCG, Qual NEGATIVE Radiology data:Recent Impressions:RADIOLOGY - XR CHEST 1 V 04/08 1330 Report Impression - Status: SIGNED Entered: 04/08/2019 1519 IMPRESSION: No active disease.Impression By: Homar Riggs M.D. Results: vital signs stable, current med profile rev'd Diagnosis, Assessment Plan Free Text DxA P NotesFree Text DxA P Notes: #Sepsis due to Pyelonehritis/Tachycardia/Febrile/Leuko cytosis.-UA positive with gram negative rachelle-cont Rocephin started- cont pain management # hypokalemia- repleted #GI PPX: Protonix #DVT ppx: SCD #Full Code Plan. will dc with clinical improvement Quality MedicationsCurrent medication review:I attest that the foregoing medication list in the medical record is true, accurate, and complete to the best of my knowledge. BMI Screening > 25 or < 18.5BMI status/follow-up: nml BMI,no drug and alcohol counselor needed Tobacco Use/CounselingTobacco use/counseling: cessation drug and alcohol counselor <3 min HTN Screening/Follow-upB/P assess/follow-up: normal B/P, no f/u req at 1401 RPT #:[id number] OF REPORTPRProgress [id number]:08:00V.[id number] for patient mlpsMEMNPZQBVQIPEF0701-38-64B40:01:28 [facility] 2019-04-09 13:08:00 [id number]/otuL8h70gj La5qDs14EQ2wiGRAREKODPVRr0Bc0r5p/SRJeGN 9w+J15219-71-99T48:08:00 [facility] Progress NoteREPORT#:[id number] REPORT STATUS: SignedDATE:04/09/19 TIME: 1308 PATIENT: MARISOL LE UNIT #: [id number]#: [id number] ROOM/BED: [id number]-ADOB: [birth year] AGE: 33 SEX: F ATTEND: [place] [facility] AUTHOR: Belen Mckenzie NP * ALL edits or amendments must be made on the electronic/computer document * SubjectiveChief Complaint:still c/o flank painPatient reports:Yes: complaints (flank pain). Nursing reports:No: complaints. Review of SystemsCardiovascular:Denies: chest pain, palpitations. :Reports: dysuria, flank pain. Denies: frequency, hematuria, urgency, urinary retention. All systems rev neg: except as marked Objective GeneralVS/I O:Vital Signs: Date Time Temp Pulse Resp B/P B/P Pulse O2 O2 Flow FiO2 Mean Ox Delivery Rate 04/09 1134 36.6 87 18 97/66 76.4 100 Room air 04/09 0723 37.3 115 18 93/60 70.7 98 Room air 04/09 0614 38.0 106 17 92/59 69.8 96 04/09 0341 37.7 98 20 93/57 69.0 97 Room air 04/09 0233 37.7 102 21 92/59 70.2 99 Room air 04/09 0105 38.0 110 18 101/64 76.0 97 04/08 2335 39.1 116 20 95/61 72.4 97 Room air 04/08 2016 38.3 123 19 92/56 68.2 98 04/08 1740 114 18 128/77 94 98 Room air 04/08 1643 37.3 102 16 96/67 76 99 Room air 04/08 1500 122 18 104/72 82 99 Room air 04/08 1327 39.5 140 18 110/75 86 99 Room air 24 hour I O ending at 0700: 04/09 0700 04/08 1900 Intake Total 1100.00 Output Total Balance 1100.00 Intake, IV 1100.00 Patient 52.727 kg Weight Weight Stated/Reported Measurement Method Patient Weight Weight (lb): Weight (oz): Weight (kg): 52.727 Physical ExamGeneral appearance: alert, awake, orientedHead/Eyes: PERRLAENT: moist mucosal membranesNeck: full range of motionCardiovascular: normal capillary refill, normal heart sounds, regular rate rhythmRespiratory: aerating well, clear to auscultation, symmetric expansion, no distressAbdomen: non-tender, normal bowel sounds, soft, no distentionGenitourinary: flank pain, Bilateral CVA tenderness.Extremities: moves allMusculoskeletal: normal inspection, Bilateral CVA tenderness.Neuro/SOCK IRONER: alert, oriented X 3, CNII-XII intactPsychiatry: normal affect, normal judgment/insight, normal mood ResultsFindings/Data:Laboratory Tests 04/08 04/08 1342 1342 Chemistry Sodium (128 - 145 mmol/L) 133 Potassium (3.5 - 5.1 mmol/L) 3.4 L Chloride (98 - 107 mmol/L) 94.0 L Carbon Dioxide (22 - 29 mmol/L) 24.1 Anion Gap (10 - 20 mmol/L) 18 BUN (7 - 22 mg/dL) 7 Creatinine (0.55 - 1.3 mg/dL) 0.73 Glomerular Filtr Rate (>=60 mL/min) > 60 BUN/Creatinine Ratio (10 - 20) 9.6 L Glucose (70 - 110 mg/dL) 108 Lactic Acid (0.4 - 1.9 MMOL/L) 1.4 Calcium (8.0 - 10.5 mg/dL) 9.1 Total Bilirubin (0.2 - 1.2 mg/dL) 0.60 Direct Bilirubin (0.0 - 0.30 mg/dL) 0.20 AST (10 - 39 U/L) 10 ALT (10 - 69 U/L) 14 Total Alk Phosphatase (50 - 139 U/L) 78 Troponin I (0.00 - 0.056 ng/mL) <0.015 Total Protein (6.1 - 7.8 gram/dL) 7.7 Albumin (3.3 - 4.4 g/dL) 3.4 Globulin (1 - 10 G/DL) 4.3 Albumin/Globulin Ratio (0.75 - 1.50) 0.8 Laboratory Tests 04/08 1342 Hematology WBC (4.5 - 12.5 K/mm3) 15.5 H RBC (3.7 - 5.2 mill/mm3) 4.31 Hgb (11.5 - 15.5 gram/dL) 11.7 Hct (36.0 - 46.0 %) 36.3 MCV (80 - 98 fL) 84.2 MCH (27.0 - 33.0 picogram) 27.1 MCHC (33.0 - 36.0 gram/dL) 32.2 L RDW (11.6 - 16.2 %) 14.9 RDW Std Deviation (37.0 - 51.0 fL) 46.5 Plt Count (150 - 450 K/mm3) 303 MPV (6.7 - 11.0 fL) 10.1 Neut % (Auto) (39.0 - 69.0 %) 75.5 H Lymph % (Auto) (25.0 - 55.0 %) 8.9 L Payette % (Auto) (0.0 - 10.0 %) 15.0 H Eos % (Auto) (0.0 - 5.0 %) 0.0 Baso % (Auto) (0.0 - 1.0 %) 0.3 Neut # (Auto) (1.8 - 7.7 K/mm3) 11.68 H Lymph # (Auto) (1.0 - 5.0 K/mm3) 1.38 Payette # (Auto) (0 - 0.8 K/mm3) 2.32 H Eos # (Auto) (0.0 - 0.5 K/mm3) 0.00 Baso # (Auto) (0.0 - 0.2 K/mm3) 0.04 Add Manual Diff NO Laboratory Tests 04/09 04/08 9296 1342 Urines Urine Color (YELLOW) YELLOW Urine Appearance (CLEAR) HAZY H Urine pH (5.0 - 8.0) 6.0 Ur Specific Marathon (1.001 - 1.035) 1.020 Urine Protein (Neg - 15 mg/dL) 100 (2+) Urine Glucose (UA) (NEGATIVE mg/dL) NEGATIVE Urine Ketones (NEGATIVE mg/dL) 1+ Urine Blood (NEGATIVE) 3+ (Large) H Urine Nitrite (NEGATIVE) POSITIVE Urine Bilirubin (NEGATIVE) NEGATIVE Urine Urobilinogen (0.0 - 0.2 mg/dL) 1 mg/dL (1+) Ur Leukocyte Esterase (NEGATIVE uL) 1+ H Urine RBC (0 - 5 per HPF) 5-10 H Urine WBC (0 - 5 per HPF) >100 H Ur Epithelial Cells (Few per HPF) Few (2-5/hpf) Urine Bacteria (NONE per HPF) LOADED H Urine HCG, Qual NEGATIVE Radiology data:Recent Impressions:RADIOLOGY - XR CHEST 1 V 04/08 1330 Report Impression - Status: SIGNED Entered: 04/08/2019 1519 IMPRESSION: No active disease.Impression By: Homar Riggs M.D. Results: vital signs stable, current med profile rev'd Diagnosis, Assessment Plan Free Text DxA P NotesFree Text DxA P Notes: #Sepsis due to Pyelonehritis/Tachycardia/Febrile/Leuko cytosis.-UA positive with gram negative rachelle-cont Rocephin started- cont pain management # hypokalemia- repleted #GI PPX: Protonix #DVT ppx: SCD #Full Code Plan. will dc with clinical improvement Quality MedicationsCurrent medication review:I attest that the foregoing medication list in the medical record is true, accurate, and complete to the best of my knowledge. BMI Screening > 25 or < 18.5BMI status/follow-up: nml BMI,no drug and alcohol counselor needed Tobacco Use/CounselingTobacco use/counseling: cessation drug and alcohol counselor <3 min HTN Screening/Follow-upB/P assess/follow-up: normal B/P, no f/u req at 1401 at 1845 RPT #:[id number] OF REPORTPRProgress [id number]:08:00V.[id number] 471AVAvailable for patient xhrrLLTTVVMLMBZTVJ8956-63-32Y77:45:23 [facility] 2019-04-08 20:23:00 [id number] RrHcNGZHEyMHI1qpxuo37U3/HudZIZSFe1TNiBw TJjPZ7016-77-27M76:23:00 [facility] History PhysicalREPORT#:[id number] REPORT STATUS: SignedDATE:04/08/19 TIME: 2022 PATIENT: MARISOL LE UNIT #: [id number]#: [id number] ROOM/BED: [id number]-ADOB: [birth year] AGE: 33 SEX: F ATTEND: Leeann Son [facility] AUTHOR: Mynor Crooks * ALL edits or amendments must be made on the electronic/computer document * History of Present Illness HPIChief complaint:FeverPCP:PCP: No Primary or Family Physician HPI:33 year old female with no significant past medical history, c/o Fever since 3 days with chills and associated with bilateral flank pain and mild nausea. Pain intensity initially at 10/10 and currently at 0/10 at rest.Her sxs not releived by taking Azo and Tylenol at home so she went to [place] ED and later transferred here. Denies any vomitings, blood in urine or dixxiness. Past hx of similar events 3 months ago but was not treated at that time.Denies drinking alcohol and doing drugs but smokes 1ppd x 20 years. HistorySmoking status for patients 13 years old or older: Never Smoker Medication/Allergy-Vaccine HxAllergies:Coded Allergies:No Known Allergies (04/08/19) Review of SystemsCardiovascular:Denies: chest pain, palpitations. :Reports: dysuria, flank pain. Denies: frequency, hematuria, urgency, urinary retention. All systems rev neg: except as marked Objective GeneralVS/I O:Vital Signs: Date Time Temp Pulse Resp B/P B/P Pulse O2 O2 Flow FiO2 Mean Ox Delivery Rate 04/08 2016 100.9 123 19 92/56 68.2 98 04/08 1740 114 18 128/77 94 98 Room air 04/08 1643 99.2 102 16 96/67 76 99 Room air 04/08 1500 122 18 104/72 82 99 Room air 04/08 1327 103.1 140 18 110/75 86 99 Room air Patient Weight Weight (lb): Weight (oz): Weight (kg): 52.727 Medications:Active Meds + DC'd Last 24 HrsSodium Chloride 1,000 ML .Q10H IV Acetaminophen 1,000 MG X1ED STA PO (DC) Ceftriaxone Sodium 1,000 MG X1ED STA IV (DC) Sodium Chloride 10 MLSodium Chloride 1,500 ML X1ED STA IV (DC) Physical ExamGeneral appearance: alert, awake, oriented, no acute distressCardiovascular: normal capillary refill, normal heart sounds, regular rate rhythmRespiratory: aerating well, clear to auscultation, symmetric expansion, no distressAbdomen: non-tender, normal bowel sounds, soft, no distentionGenitourinary: flank pain, Bilateral CVA tenderness.Extremities: moves allMusculoskeletal: normal inspection, Bilateral CVA tenderness.Neuro/SOCK IRONER: alert, oriented X 3, CNII-XII intactPsychiatry: normal affect, normal judgment/insight, normal mood Diagnosis, Assessment PlanProblem List/A P: 1. Sepsis 2. Pyelonephritis Plan discussed with: patient Code Status/Resusc. DiscussionResuscitation discussion: Discussed with: patientCode status: full code Free Text DxA P NotesFree Text DxA P Notes:#Sepsis due to Pyelonehritis/Tachycardia/Febrile/Leuko cytosis.-UA with infection WBC >100 and Hematuria.-Urine cx and Blood cx pending-IV Rocephin started-IV Fluids to continue as maintainance.-AM labs #Regular Diet #GI PPX: Protonics #DVT ppx: SCD #Full Code Quality MedicationsCurrent medication review:I attest that the foregoing medication list in the medical record is true, accurate, and complete to the best of my knowledge. BMI Screening > 25 or < 18.5Patient's BMI:Current BMI: 22.7 BMI status/follow-up: nml BMI,no drug and alcohol counselor needed Tobacco Use/CounselingTobacco use/counseling: cessation drug and alcohol counselor <3 min HTN Screening/Follow-upLast documented vitals:Last Documented: Result Date Time Pulse Ox 98 04/08 2016 B/P 92/56 04/08 2016 B/P Mean 68.2 04/08 2016 Temp 100.9 04/08 2016 Pulse 123 04/08 2016 Resp 19 04/08 2016 O2 Delivery Room air 04/08 1740 B/P assess/follow-up: normal B/P, no f/u reqBlood pressure ranges/guide:Screening for Hypertension and follow up measure #317 Blood pressure parameters Normal B/P SBP </= 119 DBP </= 79 Pre-hypertensive SBP 120-139 DBP 80-89 Hypertensive SBP >/= 140 DBP >/= 90 at 2056 RPT #:[id number] OF REPORTHPHistory and physical ofjfqoaxsft7163-52-31J10:23:00V.RMVT246 17932-0127LAMscrrogbn for patient yxmcRXCJHCBOUDJFIZ0958-76-68K14:56:30 [facility] 2019-04-08 20:23:00 [id number]+X0KWpBK3c+KllTvt2S aWENk51Fh4quzdUEAZB0u2HG9p17lJUNCBKHmgI uBVlb7782-92-16L98:23:00 [facility]ospital[facility] History PhysicalREPORT#:[id number] REPORT STATUS: SignedDATE:04/08/19 TIME: 2022 PATIENT: MARISOL LE UNIT #: [id number]#: [id number] ROOM[facility]BED: [facility]-ADOB: [birth year] AGE: 33 SEX: F ATTEND: Leeann Son [facility] AUTHOR: Mynor Crooks * ALL edits or amendments must be made on the electronic/computer document * History of Present Illness HPIChief complaint:FeverPCP:PCP: No Primary or Family Physician HPI:33 year old female with no significant past medical history, c/o Fever since 3 days with chills and associated with bilateral flank pain and mild nausea. Pain intensity initially at 10/10 and currently at 0/10 at rest.Her sxs not releived by taking Azo and Tylenol at home so she went to [place] ED and later transferred here. Denies any vomitings, blood in urine or dixxiness. Past hx of similar events 3 months ago but was not treated at that time.Denies drinking alcohol and doing drugs but smokes 1ppd x 20 years. HistorySmoking status for patients 13 years old or older: Never Smoker Medication/Allergy-Vaccine HxAllergies:Coded Allergies:No Known Allergies (04/08/19) Review of SystemsCardiovascular:Denies: chest pain, palpitations. :Reports: dysuria, flank pain. Denies: frequency, hematuria, urgency, urinary retention. All systems rev neg: except as marked Objective GeneralVS/I O:Vital Signs: Date Time Temp Pulse Resp B/P B/P Pulse O2 O2 Flow FiO2 Mean Ox Delivery Rate 04/08 2016 100.9 123 19 92/56 68.2 98 04/08 1740 114 18 128/77 94 98 Room air 04/08 1643 99.2 102 16 96/67 76 99 Room air 04/08 1500 122 18 104/72 82 99 Room air 04/08 1327 103.1 140 18 110/75 86 99 Room air Patient Weight Weight (lb): Weight (oz): Weight (kg): 52.727 Medications:Active Meds + DC'd Last 24 HrsSodium Chloride 1,000 ML .Q10H IV Acetaminophen 1,000 MG X1ED STA PO (DC) Ceftriaxone Sodium 1,000 MG X1ED STA IV (DC) Sodium Chloride 10 MLSodium Chloride 1,500 ML X1ED STA IV (DC) Physical ExamGeneral appearance: alert, awake, oriented, no acute distressCardiovascular: normal capillary refill, normal heart sounds, regular rate rhythmRespiratory: aerating well, clear to auscultation, symmetric expansion, no distressAbdomen: non-tender, normal bowel sounds, soft, no distentionGenitourinary: flank pain, Bilateral CVA tenderness.Extremities: moves allMusculoskeletal: normal inspection, Bilateral CVA tenderness.Neuro/SOCK IRONER: alert, oriented X 3, CNII-XII intactPsychiatry: normal affect, normal judgment/insight, normal mood Diagnosis, Assessment PlanProblem List/A P: 1. Sepsis 2. Pyelonephritis Plan discussed with: patient Code Status/Resusc. DiscussionResuscitation discussion: Discussed with: patientCode status: full code Free Text DxA P NotesFree Text DxA P Notes:#Sepsis due to Pyelonehritis/Tachycardia/Febrile/Leuko cytosis.-UA with infection WBC >100 and Hematuria.-Urine cx and Blood cx pending-IV Rocephin started-IV Fluids to continue as maintainance.-AM labs #Regular Diet #GI PPX: Protonics #DVT ppx: SCD #Full Code Quality MedicationsCurrent medication review:I attest that the foregoing medication list in the medical record is true, accurate, and complete to the best of my knowledge. BMI Screening > 25 or < 18.5Patient's BMI:Current BMI: 22.7 BMI status/follow-up: nml BMI,no drug and alcohol counselor needed Tobacco Use/CounselingTobacco use/counseling: cessation drug and alcohol counselor <3 min HTN Screening/Follow-upLast documented vitals:Last Documented: Result Date Time Pulse Ox 98 04/08 2016 B/P 92/56 04/08 2016 B/P Mean 68.2 04/08 2016 Temp 100.9 04/08 2016 Pulse 123 04/08 2016 Resp 19 04/08 2016 O2 Delivery Room air 04/08 1740 B/P assess/follow-up: normal B/P, no f/u reqBlood pressure ranges/guide:Screening for Hypertension and follow up measure #317 Blood pressure parameters Normal B/P SBP </= 119 DBP </= 79 Pre-hypertensive SBP 120-139 DBP 80-89 Hypertensive SBP >/= 140 DBP >/= 90 at 2056 at 0340 RPT #:[id number] OF REPORTHPHistory and physical dbmltkmgaxw4630-55-34B20:23:00V.ZVRB719 [id number] for patient xrqrGLFOZTEEVKKPAG7960-70-64F95:40:28 [facility] 2019-04-08 13:28:00 [id number] yKCggYvI9ZFmHy3c4qmadadZjGf5/e92cVNHIdW D/7cv7524-14-69C28:28:00 [facility] ([facility] PROVIDER REPORTREPORT#:[id number] REPORT STATUS: SignedDATE:04/08/19 TIME: 1328 PATIENT: MARISOL EL UNIT #: [id number]#: [id number] ROOM/BED:AGE: 33 SEX: F PCP PHYS: No Primary or Family PhysicianSERVICE AUTHOR: Paulo Chew MD * ALL edits or amendments must be made on the electronic/computer document * HPI-Dizziness/Weakness GeneralInitial Greet Date/Time 04/08/19 1308 PresentationChief Complaint Weakness, generalized Free Text HPI NotesFree Text HPI Uonxz84-xlia-wez female, no significant past medical history, who presents with bilateral flank pain and lower back pain. Patient states symptoms began approximately 3 days ago. Has not take anything for pain. Risk-Dizziness/Weakness Risk StratificationNIH Stroke Scale NIH Stroke Scale Response Value NIHSS Applicable? No 0 Total 0 Review of Systems ROS StatementsAll systems rev neg except as marked. Past Medical History - AdultStated Complaint WEAKNESS - DIZZINESSAllergiesCoded Allergies:No Known Allergies (04/08/19) Pt reports no significant: Past medical history, Past surgical history, Family history, Social history Physical Exam Vital SignsVital SignsFirst Documented: Result Date Time Pulse Ox 99 04/08 1327 B/P 110/75 04/08 1327 B/P Mean 86 / 1327 O2 Delivery Room air 04/08 1327 Temp 39.5 04/08 1327 Pulse 140 04/08 1327 Resp 18 04/08 1327 Last Documented: Result Date Time Pulse Ox 99 04/08 1327 B/P 110/75 04/08 1327 B/P Mean 86 / 1327 O2 Delivery Room air 04/08 1327 Temp 39.5 04/08 1327 Pulse 140 04/08 1327 Resp 18 04/08 1327 Review of Vital Signs Reviewed, Vital signs abnormal Focused PEGeneral/Const Text/Dict Notes General: Warm to touch, WD/WN, awake in no acute distressHead/Eyes: atraumatic, normocephalic, PERRLENT: moist mucus membranesNeck: supple/symmetric w/o bruitsCardiovascular: Tachycardic rate, no murmurs or rubs appreciatedRespiratory: Tachypneic, clear to auscultation bilat; no resp distress or use ofaccessory muscles notedAbdomen: soft, NT/ND, normal bowel sounds, no hepatosplenomegaly notedExtremities: w/o cyanosis, clubbing, edema,Musculoskeletal: normal inspection, normal toneNeuro/SOCK IRONER: alert oriented x 3, nonfocalSkin: warm, dry, intactPsychiatric: normal affect, mood, speech patterns, judgment Interpretation Diagnostics Lab Results InterpretationResultsLaboratory Tests 04/08/19 1342:[Embedded Image Not Available]Laboratory Tests: 04/08 04/08 1342 1342 Chemistry Sodium (128 - 145 mmol/L) 133 Potassium (3.5 - 5.1 mmol/L) 3.4 L Chloride (98 - 107 mmol/L) 94.0 L Carbon Dioxide (22 - 29 mmol/L) 24.1 Anion Gap (10 - 20 mmol/L) 18 BUN (7 - 22 mg/dL) 7 Creatinine (0.55 - 1.3 mg/dL) 0.73 Glomerular Filtr Rate (>=60 mL/min) > 60 BUN/Creatinine Ratio (10 - 20) 9.6 L Glucose (70 - 110 mg/dL) 108 Lactic Acid (0.4 - 1.9 MMOL/L) 1.4 Calcium (8.0 - 10.5 mg/dL) 9.1 Total Bilirubin (0.2 - 1.2 mg/dL) 0.60 Direct Bilirubin (0.0 - 0.30 mg/dL) 0.20 AST (10 - 39 U/L) 10 ALT (10 - 69 U/L) 14 Total Alk Phosphatase (50 - 139 U/L) 78 Troponin I (0.00 - 0.056 ng/mL) <0.015 Total Protein (6.1 - 7.8 gram/dL) 7.7 Albumin (3.3 - 4.4 g/dL) 3.4 Globulin (1 - 10 G/DL) 4.3 Albumin/Globulin Ratio (0.75 - 1.50) 0.8 Hematology WBC (4.5 - 12.5 K/mm3) 15.5 H RBC (3.7 - 5.2 mill/mm3) 4.31 Hgb (11.5 - 15.5 gram/dL) 11.7 Hct (36.0 - 46.0 %) 36.3 MCV (80 - 98 fL) 84.2 MCH (27.0 - 33.0 picogram) 27.1 MCHC (33.0 - 36.0 gram/dL) 32.2 L RDW (11.6 - 16.2 %) 14.9 RDW Std Deviation (37.0 - 51.0 fL) 46.5 Plt Count (150 - 450 K/mm3) 303 MPV (6.7 - 11.0 fL) 10.1 Neut % (Auto) (39.0 - 69.0 %) 75.5 H Lymph % (Auto) (25.0 - 55.0 %) 8.9 L Payette % (Auto) (0.0 - 10.0 %) 15.0 H Eos % (Auto) (0.0 - 5.0 %) 0.0 Baso % (Auto) (0.0 - 1.0 %) 0.3 Neut # (Auto) (1.8 - 7.7 K/mm3) 11.68 H Lymph # (Auto) (1.0 - 5.0 K/mm3) 1.38 Payette # (Auto) (0 - 0.8 K/mm3) 2.32 H Eos # (Auto) (0.0 - 0.5 K/mm3) 0.00 Baso # (Auto) (0.0 - 0.2 K/mm3) 0.04 Add Manual Diff NO Urines Urine Color (YELLOW) YELLOW Urine Appearance (CLEAR) HAZY H Urine pH (5.0 - 8.0) 6.0 Ur Specific Marathon (1.001 - 1.035) 1.020 Urine Protein (Neg - 15 mg/dL) 100 (2+) Urine Glucose (UA) (NEGATIVE mg/dL) NEGATIVE Urine Ketones (NEGATIVE mg/dL) 1+ Urine Blood (NEGATIVE) 3+ (Large) H Urine Nitrite (NEGATIVE) POSITIVE Urine Bilirubin (NEGATIVE) NEGATIVE Urine Urobilinogen (0.0 - 0.2 mg/dL) 1 mg/dL (1+) Ur Leukocyte Esterase (NEGATIVE uL) 1+ H Urine RBC (0 - 5 per HPF) 5-10 H Urine WBC (0 - 5 per HPF) >100 H Ur Epithelial Cells (Few per HPF) Few (2-5/hpf) Urine Bacteria (NONE per HPF) LOADED H Microbiology: Date/Time Procedure - Status Source Growth 04/08 1342 Urine Culture - RECD URINE 04/08 1328 Blood Culture - ORD BLOOD 04/08 1328 Blood Culture - ORD BLOOD Recent Impressions:RADIOLOGY - XR CHEST 1 V 04/08 1330 Report Impression - Status: SIGNED Entered: 04/08/2019 1519 IMPRESSION: No active disease.Impression By: Homar Riggs M.D. Re-Evaluation MDM Free Text MDM NotesFree Text MDM Zvbst68-hlbj-xun female presents with tachycardic fever, tachycardia, bilateral flankpain Patient appears to have sepsis here. Code sepsis called upon arrival. Will treat for UTI. Remains tachycardic despite fluids. Patient will be admitted for sepsis pyelonephritis. Re-Evaluation/Progress #1Text/Dict NotePatient remains tachycardic at 105 despite 30 mL/kg fluid bolus. Findings consistent with pyelonephritis. Patient will be admitted for further management. ED CourseMedication(s) OrderedMedication(s) Ordered:Anti-Infective Agents Sig/Stephan Start time Last Medication Dose Route Stop Time Status Admin Ceftriaxone Sodium 1,000 MG X1ED STA 04/08 1327 DC 12 Sodium Chloride 10 ML IV 04/08 1329 1415 Central Nervous System Agents Sig/Stephan Start time Last Medication Dose Route Stop Time Status Admin Acetaminophen 1,000 MG X1ED STA 04/08 1327 DC 12/ PO 12 1328 1415 Electrolytic, Caloric, And Kemal Sig/Stephan Start time Last Medication Dose Route Stop Time Status Admin Sodium Chloride 1,500 ML X1ED STA 04/08 1327 DC 12/ IV 04/08 1328 1414 Patient Discharge Departure Vital Signs/ConditionVital SignsFirst Documented: Result Date Time Pulse Ox 99 04/08 1327 B/P 110/75 04/08 1327 B/P Mean 86 04/08 1327 O2 Delivery Room air 04/08 1327 Temp 39.5 04/08 1327 Pulse 140 04/08 1327 Resp 18 04/08 1327 Last Documented: Result Date Time Pulse Ox 99 04/08 1327 B/P 110/75 04/08 1327 B/P Mean 86 04/08 1327 O2 Delivery Room air 04/08 1327 Temp 39.5 04/08 1327 Pulse 140 04/08 1327 Resp 18 04/08 1327 All vital signs available at the time of this entry have been reviewed. Clinical ImpressionClinical ImpressionPrimary Impression: SepsisSecondary Impressions: Pyelonephritis Disposition DecisionAdmit Admit Physician Name Leeann Son MD Admit Physician Hospitalist Request Time 1630 Request Date 04/08/19 )( Admission Accepts Yes )( Accepted Time 1630 )( Accepted Date 04/08/19 Call Information will see patient, agrees with eval, agrees with plan at 1633RPT #:[id number] OF REPORTEDEmergency department gizwab4624-13-64J11:28:00V.[id number] -0469AVAvailable for patient gkqrYWTKPZDRABIPCX9398-44-81V71:33:48 [facility]
[2023-06-01 21:26] LABS: Absolute Lymphocytes (CBC) 2.9 K/uL (0.7-4.9); Hematocrit 32.7 % (36.0-45.0); Lymphocytes % 29.7 % (15.3-44.8); MCV 82.5 fL (80-100); MPV 7.9 fL (7.6-11.3); Platelets 393 thou/uL (152-406); RBC Red Blood Cell Count 3.96 M/uL (3.86-4.86)
[2023-06-01 21:40] LABS: ALT/SGPT 25 U/L (13-56); AST/SGOT 13 U/L (15-37); Albumin 3.7 g/dL (3.4-5.0); Alkaline Phosphatase 67 U/L (45-117); BUN Blood Urea Nitrogen 13 mg/dL (7-18); Bicarbonate 24 mEq/L (21-32); Bilirubin Direct 0.1 mg/dL (0-0.2); Bilirubin Indirect, Calculated 0.2 mg/dL (0.2-0.8); Bilirubin Total 0.3 mg/dL (0.2-1.0); Glomerular Filtration Rate 116 ml/min (=/>90); Glucose Level 95 mg/dL (74-106); Magnesium 2.1 mg/dL (1.6-2.4); Potassium 4.1 mEq/L (3.5-5.1); Protein, Total 7.5 g/dL (6.4-8.2); Sodium Level 136 mEq/L (136-145)
[2023-06-01 21:51] LABS: Troponin High Sensitivity < 3.0 pg/mL (<58.9)
--- NOTE | 2023-06-01 21:54 | RAD REPORT ---
EXAM DESCRIPTION: RAD - Chest Single View - 06/01/2023 9:43 pm CLINICAL HISTORY: CHEST PAIN Chest pain. COMPARISON: No comparisons FINDINGS: Portable technique limits examination quality. The lungs are grossly clear. The heart is normal in size. No displaced fractures. IMPRESSION: No acute intrathoracic process suspected.
--- NOTE | 2023-06-01 23:27 | EDPHYS ---
Physician Documentation [facility] Name: Eulalia Cm Age: 37 yrs Sex: Female : 1985 Arrival Date: 06/01/2023 Time: 20:26 Bed 14 Private MD: ED Physician Enzo Maravilla HPI: 06/01 20:55 This 37 yrs old Female presents to ER via Wheelchair with complaints of chest pain. sb4 20:55 The patient or guardian reports chest pain that is located primarily in the left sb4 lateral anterior chest. The pain radiates to the left shoulder. Associated signs and symptoms: The patient has no apparent associated signs or symptoms. The chest pain is described as crampy. The patient has not experienced similar symptoms in the past. The patient has not recently seen a physician. woke up from nap with left lateral chest wall pain. reports sob. no n/v/d or fever. does smoke. no URI symptoms. Historical: - Allergies: 20:40 No Known Allergies; tl4 - Home Meds: 20:40 None [Active]; tl4 - PMHx: 20:40 None; tl4 - Immunization history:: Adult Immunizations unknown. - Social history:: Smoking status: Patient reports the use of cigarette tobacco products, smokes one pack cigarettes per day. ROS: 20:55 Constitutional: Negative for fever, chills, and weight loss, sb4 20:55 Cardiovascular: Positive for chest pain, 20:55 All other systems are negative, Exam: 20:55 Head/Face: Normocephalic, atraumatic. Eyes: Extra-ocular motions intact. Periorbital sb4 areas with no swelling, redness, or edema. ENT: Mucous membranes moist. Cardiovascular: Regular rate and rhythm with a normal S1 and S2. Respiratory: Lungs have equal breath sounds bilaterally, clear to auscultation and percussion. No rales, rhonchi or wheezes noted. No increased work of breathing, no retractions or nasal flaring. Abdomen/GI: Soft, non-tender, no distension. Skin: Warm, dry with normal turgor. Normal color with no rashes, no lesions, and no evidence of cellulitis. MS/ Extremity: Pulses equal, no cyanosis. Neurovascular intact. Full, normal range of motion. Neuro: Awake and alert, GCS 15, oriented to person, place, time, and situation. Motor strength 5/5 in all extremities. Sensory grossly intact. 20:55 Constitutional: The patient appears alert, awake, uncomfortable, Vital Signs: 20:35 Temp 98.5(O); Weight 45.36 kg; Height 5 ft. 1 in. ; tl4 21:53 BP 110 / 74; Pulse 89; sb4 23:35 BP 116 / 83; Pulse 93; Resp 18; Temp 98; Pulse Ox 99% on R/A; rv 20:35 Body Mass Index 18.89 (45.36 kg, 154.94 cm) tl4 MDM: 20:32 Patient medically screened. rn 20:55 Differential diagnosis: abnormal EKG, anxiety, chest wall pain, pneumonia, sb4 pneumothorax, pulmonary embolus. 23:26 Data reviewed: vital signs, nurses notes, lab test result(s), EKG, radiologic studies, sb4 and as a result, I will discharge patient. Scoring Tools HEART Score: History: ECG: Age: Risk Factors: 1 or 2 risk factors (1), Troponin: Total Score = 1. Counseling: I had a detailed discussion with the patient and/or guardian regarding the historical points, exam findings, and any diagnostic results supporting the discharge/admit diagnosis, lab results, radiology results, to return to the emergency department if symptoms worsen or persist or if there are any questions or concerns that arise at home, smoking cessation. 06/01 20:34 Order name: Basic Metabolic Panel; Complete Time: 21:52 sb4 06/01 20:34 Order name: CBC with Diff; Complete Time: 21:29 sb4 06/01 20:34 Order name: D-Dimer; Complete Time: 21:33 sb4 06/01 20:34 Order name: LFT's; Complete Time: 21:52 sb4 06/01 20:34 Order name: Magnesium; Complete Time: 21:52 sb4 06/01 20:34 Order name: Troponin HS; Complete Time: 21:52 sb4 06/01 20:59 Order name: Test, Serum; Complete Time: 22:13 rv 06/01 20:34 Order name: XRAY Chest (1 view); Complete Time: 21:55 sb4 06/01 20:34 Order name: EKG; Complete Time: 20:35 sb4 06/01 20:34 Order name: Cardiac monitoring; Complete Time: 20:37 sb4 06/01 20:34 Order name: EKG - Nurse/Tech; Complete Time: 20:37 sb4 06/01 20:34 Order name: IV Saline Lock; Complete Time: 20:37 sb4 06/01 20:34 Order name: Labs collected and sent; Complete Time: 20:37 sb4 06/01 20:34 Order name: O2 Per Protocol; Complete Time: 20:37 sb4 06/01 20:34 Order name: O2 Sat Monitoring; Complete Time: 20:37 sb4 EC:38 Rate is 97 beats/min. Rhythm is regular, Sinus Rhythm. NV interval is shortened at 110 sb4 msec. QRS interval is normal at 82 msec. QT interval is normal at 356 msec. No Q waves. T waves are Normal. No ST changes noted. Clinical impression: Normal ECG. Interpreted by me. Reviewed by me. Administered Medications: 21:08 Drug: NS 0.9% IV 1000 ml IV at 1 bolus Per protocol; 1000 mL bolus Route: IV; Rate: 1 rv bolus; Site: right hand; 22:53 Follow up: IV Status: Completed infusion; IV Intake: 1000ml rv 23:38 Follow up: IV Status: Completed infusion; IV Intake: 1000ml rv 22:30 Drug: Ketorolac IVP 30 mg IVP once Route: IVP; Site: right hand; rv 23:38 Follow up: Response: No adverse reaction rv Disposition: 23:40 Co-signature as Attending Physician, Enzo Maravilla MD I reviewed the patient's care rn provided by the Advanced Practice Provider and agree with the diagnosis and treatment plan. Disposition Summary: 06/01/23 23:27 Discharge Ordered Notes: Location: Home sb4 Problem: new sb4 Symptoms: are resolved sb4 Condition: Stable sb4 Diagnosis - Chest pain, unspecified sb4 Followup: sb4 - With: Emergency Department - When: As needed - Reason: Trouble breathing, Worsening of condition Discharge Instructions: - Discharge Summary Sheet sb4 - Nonspecific Chest Pain, Adult, [id number] sb4 Forms: - Medication Reconciliation Form sb4 - Thank You Letter sb4 - Patient Portal Instructions sb4 - Leadership Thank You Letter sb4 Signatures: Dispatcher [employer] Enzo Smith MD MD rn Vicente, Ronaldo, RN RN Bonita Ziegler, KOFI PAItzel sb4 Brendon Whelan tl4 Corrections: (The following items were deleted from the chart) 22:32 20:35 Test, Urine+[id number].LAB.BRZ ordered. EDMS EDMS
--- NOTE | 2023-06-01 23:27 | ER ---
Nurse's Notes [facility] Name: Eulalia Cm Age: 37 yrs Sex: Female : 1985 Arrival Date: 06/01/2023 Time: 20:26 Bed 14 Private MD: Diagnosis: Chest pain, unspecified Presentation: 06/01 20:35 Chief complaint: Patient states: Pt states she woke up with left shoulder and chest tl4 cramping that radiates into her neck. Pt also c/o left side abdominal burning. Pt denies any history of similar symptoms. Coronavirus screen: At this time, the client does not indicate any symptoms associated with coronavirus-19. Ebola Screen: No symptoms or risks identified at this time. Initial Sepsis Screen: Does the patient meet any 2 criteria? No. Patient's initial sepsis screen is negative. Does the patient have a suspected source of infection? No. Patient's initial sepsis screen is negative. Risk Assessment: Do you want to hurt yourself or someone else? Patient reports no desire to harm self or others. Onset of symptoms was June 01, 2023. 20:35 Method Of Arrival: Wheelchair tl4 20:35 Acuity: LAURIE 2 tl4 Historical: - Allergies: 20:40 No Known Allergies; tl4 - Home Meds: 20:40 None [Active]; tl4 - PMHx: 20:40 None; tl4 - Immunization history:: Adult Immunizations unknown. - Social history:: Smoking status: Patient reports the use of cigarette tobacco products, smokes one pack cigarettes per day. Screenin:00 [facility] ED Fall Risk Assessment (Adult) History of falling in the last 3 months, rv including since admission No falls in past 3 months (0 pts) Score/Fall Risk Level 0 - 2 = Low Risk Oriented to surroundings, Maintained a safe environment, Educated pt \T\ family on fall prevention, incl call for assistance when getting out of bed, Assessed \T\ reinforced patient's understanding of fall precautions. 21:00 Abuse screen: Denies threats or abuse. Denies injuries from another. Nutritional rv screening: No deficits noted. Tuberculosis screening: No symptoms or risk factors identified. Assessment: 21:00 General: Appears in no apparent distress. Behavior is calm, cooperative. rv 21:00 Pain: Complains of pain in chest. Neuro: Level of Consciousness is awake, alert, obeys rv commands, Oriented to person, place, time, situation. Cardiovascular: Capillary refill < 3 seconds Patient's skin is warm and dry. Respiratory: Airway is patent Respiratory effort is even, unlabored. GI: No signs and/or symptoms were reported involving the gastrointestinal system. : No signs and/or symptoms were reported regarding the genitourinary system. Derm: Skin is intact. Vital Signs: 20:35 Temp 98.5(O); Weight 45.36 kg; Height 5 ft. 1 in. ; tl4 21:53 BP 110 / 74; Pulse 89; sb4 23:35 BP 116 / 83; Pulse 93; Resp 18; Temp 98; Pulse Ox 99% on R/A; rv 20:35 Body Mass Index 18.89 (45.36 kg, 154.94 cm) tl4 ED Course: 20:30 Patient arrived in ED. jb4 20:32 Enzo Maravilla MD is Attending Physician. rn 20:33 Bonita Comer [facility]C [facility] sb4 20:40 Triage completed. tl4 20:40 Arm band placed on Patient placed in an exam room, on a stretcher. tl4 20:58 Alex De La Fuente, GORGE is Primary Nurse. rv 21:00 Patient has correct armband on for positive identification. rv 21:00 No provider procedures requiring assistance completed. rv 21:19 Inserted saline lock: 22 gauge in right hand, using aseptic technique. Blood collected. oe 21:45 XRAY Chest (1 view) In Process Unspecified. EDMS 23:37 IV discontinued, intact, bleeding controlled, No redness/swelling at site. Pressure rv dressing applied. Administered Medications: 21:08 Drug: NS 0.9% IV 1000 ml IV at 1 bolus Per protocol; 1000 mL bolus Route: IV; Rate: 1 rv bolus; Site: right hand; 22:53 Follow up: IV Status: Completed infusion; IV Intake: 1000ml rv 23:38 Follow up: IV Status: Completed infusion; IV Intake: 1000ml rv 22:30 Drug: Ketorolac IVP 30 mg IVP once Route: IVP; Site: right hand; rv 23:38 Follow up: Response: No adverse reaction rv Medication: 23:37 VIS not applicable for this client. rv Intake: 22:53 IV: 1000ml; Total: 1000ml. rv 23:38 IV: 1000ml; Total: 2000ml. rv Outcome: 23:27 Discharge ordered by . sb4 23:37 Discharged to home ambulatory, rv 23:37 Condition: good 23:37 Discharge instructions given to patient, Instructed on discharge instructions, follow up and referral plans. Demonstrated understanding of instructions, follow-up care, 23:38 Patient left the ED. rv Signatures: Dispatcher [employer] EDMS Enzo Maravilla MD MD rn Bryson, James RN RN jb4 Thiago Gary Ronaldo RN RN Bonita Ziegler, PA-C PA-C sb4 Logda, Brendon tl4
[2023-06-02 02:10] VITALS: BP 116/83; TEMP 98; O2SAT 99
--- NOTE | 2023-06-03 15:02 | EKG ---
Test Date: 2023-06-01 Test Time: 20:33:43 Corporate Quality Manager: TL MEASUREMENT RESULTS: Intervals: Rate: 97 UT: 110 QRSD: 82 QT: 356 QTc: 452 [place]: P: 79 UT: 110 QRS: 83 T: 74 INTERPRETIVE STATEMENTS: Sinus rhythm with short UT Otherwise normal ECG No previous ECG available for comparison Electronically Signed On 06-03-23 14:58:52 INVISIBLE [employer] ORTHODONTIST by Gunnar Chavez
== END ==
LOC: ER 20:26
DX: R07.89 Other chest pain (principal)
CPT/HCPCS: 36415; 71045; 80048; 80076; 83735; 84484; 84703; 85025; 85379; 93005; J7030